=== PATIENT | male | born 1930 | race Caucasian/White ===

== ENCOUNTER 2016-10-13 11:01 | Outpatient (CLI) | payer MEDICARE, OTHER | END 2016-10-13 11:02 | disposition home or self-care (01) | DX: N05.9 Unspecified nephritic syndrome with unspecified morphologic changes (principal) ==

== ENCOUNTER 2016-11-06 14:42 | Outpatient (CLI) | payer MEDICARE, OTHER | END 2016-11-06 23:59 | disposition home or self-care (01) | DX: G47.33 Obstructive sleep apnea (adult) (pediatric) (principal) | CPT/HCPCS: 99213; G0463 ==

== ENCOUNTER 2016-12-29 08:12 | Outpatient (CLI) | payer MEDICARE, OTHER ==
[2016-12-29 13:52] LABS: BASOPHILS # (AUTO) 0.1 10^3/uL (0.0-0.1); BASOPHILS % (AUTO) 1.1 %; EOSINOPHILS # (AUTO) 0.4 10^3/uL (0.0-0.7); EOSINOPHILS % (AUTO) 5.7 %; HCT - HEMATOCRIT 42.9 % (42.0-52.0); HGB - HEMOGLOBIN 14.4 g/dL (14.0-18.0); LYMPHOCYTES # (AUTO) 1.9 10^3/uL (1.5-3.5); LYMPHOCYTES % (AUTO) 25.7 %; MEAN CORPUSCULAR HGB CONC 33.5 g/dL (32.0-36.0); MEAN CORPUSCULAR VOLUME 86.7 fL (80.0-94.0); MEAN PLATELET VOLUME 8.8 fL (7.4-11.4); MONOCYTES # (AUTO) 0.7 10^3/uL (0.0-1.0); MONOCYTES % (AUTO) 9.8 %; NEUTROPHILS # (AUTO) 4.3 10^3/uL (1.5-6.6); NEUTROPHILS % (AUTO) 57.7 %; RED BLOOD COUNT 4.95 10^6/uL (4.70-6.10); UNCORRECTED WHITE BLOOD COUNT 7.4 x10^3/uL; WHITE BLOOD COUNT 7.4 x10^3/uL (4.8-10.8)
[2016-12-29 14:23] LABS: ALBUMIN/GLOBULIN RATIO 1.9 (1.0-2.2); BILIRUBIN,TOTAL 0.6 mg/dL (0.2-1.0); BUN - BLOOD UREA NITROGEN 17 mg/dL (6-20); CALCIUM 9.6 mg/dL (8.5-10.3); CARBON DIOXIDE - CO2 29 mmol/L (21-32); CHLORIDE 100 mmol/L (101-111); CHOLESTEROL 121 mg/dL; CREATININE 1.3 mg/dL (0.6-1.2); GFR - MDRD 53 (>89); GLUCOSE 136 mg/dL (70-100); HDL CHOLESTEROL 40 mg/dL; LDL/HDL RATIO 0.8 (<3.6); POTASSIUM 4.2 mmol/L (3.5-5.0); SODIUM 138 mmol/L (135-145); TOTAL PROTEIN 7.2 g/dL (6.7-8.2); TRIGLYCERIDES 249 mg/dL; VLDL CHOLESTEROL 50 mg/dL
== END 2016-12-29 23:59 | disposition home or self-care (01) ==
LOC: LAB.WCP 08:12
PROVIDERS: ATTEND Family Medicine
DX: E78.5 Hyperlipidemia, unspecified (principal)
CPT/HCPCS: 36415; 80053; 80061; 84403; 85025

== ENCOUNTER 2017-01-05 08:00 | Outpatient (CLI) | payer MEDICARE, OTHER ==
[2017-01-05 20:21] LABS: HEMOGLOBIN A1C 0.7 g/dL
== END 2017-01-05 08:01 | disposition home or self-care (01) ==
LOC: LAB.WCP 08:00
PROVIDERS: ATTEND Family Medicine
DX: E11.9 Type 2 diabetes mellitus without complications (principal)
CPT/HCPCS: 36415; 82043; 83036

== ENCOUNTER 2017-09-12 23:30 | Outpatient (CLI) | payer MEDICARE, OTHER | END 2017-09-12 23:31 | LOC: LAB.R 23:30 | PROVIDERS: ATTEND Family Medicine | DX: R30.0 Dysuria (principal) | CPT/HCPCS: 87086 ==

== ENCOUNTER 2017-11-15 08:00 | Outpatient (CLI) | payer MEDICARE, OTHER ==
[2017-11-15 12:38] LABS: BASOPHILS # (AUTO) 0.1 10^3/uL (0.0-0.1); BASOPHILS % (AUTO) 1.3 %; EOSINOPHILS # (AUTO) 0.5 10^3/uL (0.0-0.7); EOSINOPHILS % (AUTO) 5.9 %; HGB - HEMOGLOBIN 15.4 g/dL (14.0-18.0); LYMPHOCYTES % (AUTO) 23.6 %; MEAN CORPUSCULAR HEMOGLOBIN 29.2 pg (27.0-31.0); MEAN CORPUSCULAR HGB CONC 33.3 g/dL (32.0-36.0); MEAN CORPUSCULAR VOLUME 87.5 fL (80.0-94.0); MEAN PLATELET VOLUME 7.8 fL (7.4-11.4); MONOCYTES # (AUTO) 0.8 10^3/uL (0.0-1.0); MONOCYTES % (AUTO) 8.7 %; NEUTROPHILS # (AUTO) 5.2 10^3/uL (1.5-6.6); NEUTROPHILS % (AUTO) 60.5 %; PLT - PLATELET COUNT 213 10^3/uL (130-450); RED BLOOD COUNT 5.27 10^6/uL (4.70-6.10); RED CELL DISTRIBUTION WIDTH 17.7 % (12.0-15.0); WHITE BLOOD COUNT 8.6 x10^3/uL (4.8-10.8)
[2017-11-15 12:57] LABS: ALBUMIN 4.5 g/dL (3.2-5.5); ALBUMIN/GLOBULIN RATIO 1.7 (1.0-2.2); ALKALINE PHOSPHATASE 36 IU/L (42-121); ALT ALANINE AMINOTRANSFERASE 18 IU/L (10-60); AST ASPARTATE AMINOTRANSFERASE 21 IU/L (10-42); BILIRUBIN,TOTAL 0.5 mg/dL (0.2-1.0); BUN - BLOOD UREA NITROGEN 19 mg/dL (6-20); CALCIUM 9.2 mg/dL (8.5-10.3); CARBON DIOXIDE - CO2 25 mmol/L (21-32); CHLORIDE 97 mmol/L (101-111); CHOL/HDL RATIO 3.1 (<5.0); CHOLESTEROL 125 mg/dL; CREATININE 1.2 mg/dL (0.6-1.2); GFR - MDRD 58 (>89); GLUCOSE 124 mg/dL (70-100); HDL CHOLESTEROL 40 mg/dL; LDL CHOLESTEROL,CALCULATED 45 mg/dL; LDL/HDL RATIO 1.1 (<3.6); SODIUM 131 mmol/L (135-145); TOTAL PROTEIN 7.2 g/dL (6.7-8.2); VLDL CHOLESTEROL 40 mg/dL
[2017-11-15 15:26] LABS: HB2 TOTAL 17.1 g/dL; HEMOGLOBIN A1C 0.92 g/dL; HEMOGLOBIN A1C % 7.1 % (4.6-6.2)
== END 2017-11-15 08:01 ==
LOC: LAB.WCP 08:00
PROVIDERS: ATTEND Family Medicine
DX: I10 Essential (primary) hypertension (principal); E11.9 Type 2 diabetes mellitus without complications; E78.5 Hyperlipidemia, unspecified; E29.8 Other testicular dysfunction; R41.3 Other amnesia; D64.9 Anemia, unspecified; F32.9 Major depressive disorder, single episode, unspecified
CPT/HCPCS: 36415; 80053; 80061; 82043; 83036; 83721; 84403; 84443; 85025

== ENCOUNTER 2017-12-12 11:54 | Outpatient (CLI) | payer MEDICARE, OTHER ==
[2017-12-12 19:01] LABS: HGB - HEMOGLOBIN 14.3 g/dL (14.0-18.0); MEAN CORPUSCULAR HEMOGLOBIN 29.1 pg (27.0-31.0); MEAN CORPUSCULAR HGB CONC 32.7 g/dL (32.0-36.0); MEAN CORPUSCULAR VOLUME 88.8 fL (80.0-94.0); MEAN PLATELET VOLUME 8.1 fL (7.4-11.4); RED BLOOD COUNT 4.92 10^6/uL (4.70-6.10); RED CELL DISTRIBUTION WIDTH 17.9 % (12.0-15.0); WHITE BLOOD COUNT 7.3 x10^3/uL (4.8-10.8)
[2017-12-12 19:14] LABS: CALCIUM 9.3 mg/dL (8.5-10.3); CREATININE 1.3 mg/dL (0.6-1.2); PHOSPHORUS 2.3 mg/dL (2.5-4.6)
[2017-12-12 19:21] LABS: CREATININE,URINE 74.4 mg/dL; PROTEIN/CREATININE RATIO,URINE 0.2 (<=0.2)
== END 2017-12-12 11:55 | disposition home or self-care (01) ==
LOC: LAB.WCP 11:54
PROVIDERS: ATTEND Internal Medicine Nephrology
DX: N05.9 Unspecified nephritic syndrome with unspecified morphologic changes (principal); D70.9 Neutropenia, unspecified; D63.1 Anemia in chronic kidney disease; E83.30 Disorder of phosphorus metabolism, unspecified; N25.81 Secondary hyperparathyroidism of renal origin; R80.9 Proteinuria, unspecified
CPT/HCPCS: 36415; 80048; 82570; 83970; 84100; 84156

== ENCOUNTER 2018-04-02 07:24 | Outpatient (CLI) | payer MEDICARE, OTHER ==
[2018-04-02 12:20] LABS: ALBUMIN 4.6 g/dL (3.2-5.5); ALBUMIN/GLOBULIN RATIO 1.6 (1.0-2.2); BILIRUBIN,TOTAL 0.9 mg/dL (0.2-1.0); CALCIUM 9.6 mg/dL (8.5-10.3); CREATININE 1.4 mg/dL (0.6-1.2); TOTAL PROTEIN 7.4 g/dL (6.7-8.2)
[2018-04-02 12:28] LABS: HB2 TOTAL 16.5 g/dL; HEMOGLOBIN A1C 0.85 g/dL; HEMOGLOBIN A1C % 6.9 % (4.6-6.2)
[2018-04-02 12:42] LABS: BASOPHILS # (AUTO) 0.1 10^3/uL (0.0-0.1); BASOPHILS % (AUTO) 1.1 %; EOSINOPHILS # (AUTO) 0.5 10^3/uL (0.0-0.7); HGB - HEMOGLOBIN 15.5 g/dL (14.0-18.0); LYMPHOCYTES # (AUTO) 1.9 10^3/uL (1.5-3.5); LYMPHOCYTES % (AUTO) 21.7 %; MEAN CORPUSCULAR HEMOGLOBIN 29.4 pg (27.0-31.0); MEAN CORPUSCULAR HGB CONC 33.7 g/dL (32.0-36.0); MEAN CORPUSCULAR VOLUME 87.1 fL (80.0-94.0); MEAN PLATELET VOLUME 7.7 fL (7.4-11.4); MONOCYTES # (AUTO) 0.8 10^3/uL (0.0-1.0); MONOCYTES % (AUTO) 9.7 %; NEUTROPHILS # (AUTO) 5.4 10^3/uL (1.5-6.6); NEUTROPHILS % (AUTO) 61.5 %; PLT - PLATELET COUNT 230 10^3/uL (130-450); RED BLOOD COUNT 5.28 10^6/uL (4.70-6.10); RED CELL DISTRIBUTION WIDTH 17.8 % (12.0-15.0); WHITE BLOOD COUNT 8.7 x10^3/uL (4.8-10.8)
== END 2018-04-02 07:25 | disposition home or self-care (01) ==
LOC: LAB.WCP 07:24
PROVIDERS: ATTEND Family Medicine
DX: I10 Essential (primary) hypertension (principal); E11.9 Type 2 diabetes mellitus without complications; D64.9 Anemia, unspecified
CPT/HCPCS: 36415; 80053; 83036; 85025

== ENCOUNTER 2018-09-12 15:20 | Outpatient (CLI) | payer MEDICARE, OTHER ==
[2018-09-12 18:54] LABS: BASOPHILS # (AUTO) 0.1 10^3/uL (0.0-0.1); BASOPHILS % (AUTO) 1.1 %; EOSINOPHILS # (AUTO) 0.3 10^3/uL (0.0-0.7); EOSINOPHILS % (AUTO) 4.7 %; HGB - HEMOGLOBIN 10.8 g/dL (14.0-18.0); LYMPHOCYTES % (AUTO) 29.4 %; MEAN CORPUSCULAR HEMOGLOBIN 29.5 pg (27.0-31.0); MEAN CORPUSCULAR HGB CONC 32.6 g/dL (32.0-36.0); MEAN CORPUSCULAR VOLUME 90.4 fL (80.0-94.0); MEAN PLATELET VOLUME 7.8 fL (7.4-11.4); MONOCYTES # (AUTO) 0.5 10^3/uL (0.0-1.0); NEUTROPHILS % (AUTO) 57.8 %; PLT - PLATELET COUNT 383 10^3/uL (130-450); RED BLOOD COUNT 3.67 10^6/uL (4.70-6.10); RED CELL DISTRIBUTION WIDTH 17.6 % (12.0-15.0); WHITE BLOOD COUNT 6.8 x10^3/uL (4.8-10.8)
[2018-09-12 19:07] LABS: HB2 TOTAL 11.1 g/dL; HEMOGLOBIN A1C 0.35 g/dL
[2018-09-12 19:09] LABS: ALBUMIN 3.7 g/dL (3.2-5.5); ALBUMIN/GLOBULIN RATIO 1.2 (1.0-2.2); BILIRUBIN,TOTAL 0.6 mg/dL (0.2-1.0); CALCIUM 9.5 mg/dL (8.5-10.3); CREATININE 1.2 mg/dL (0.6-1.2); TOTAL PROTEIN 6.9 g/dL (6.7-8.2)
[2018-09-12 19:33] LABS: FOLATE 20.38 ng/mL (5.90 - >24.8)
== END 2018-09-12 15:21 | disposition home or self-care (01) ==
LOC: LAB.WCP 15:20
PROVIDERS: ATTEND Family Medicine
DX: E11.9 Type 2 diabetes mellitus without complications (principal); E29.8 Other testicular dysfunction; R41.3 Other amnesia; I10 Essential (primary) hypertension; I25.810 Atherosclerosis of coronary artery bypass graft(s) without angina pectoris
CPT/HCPCS: 36415; 80053; 82043; 82607; 82746; 83036; 84403; 85025

== ENCOUNTER 2018-10-18 09:25 | Outpatient (CLI) | payer MEDICARE, OTHER | END 2018-10-18 23:59 | LOC: LAB.WCP 09:25 | PROVIDERS: ATTEND Family Medicine | DX: E29.8 Other testicular dysfunction (principal); R10.9 Unspecified abdominal pain; K29.70 Gastritis, unspecified, without bleeding; F41.8 Other specified anxiety disorders | CPT/HCPCS: 36415; 84403 ==

== ENCOUNTER 2018-12-18 01:19 | Outpatient (CLI) | payer MEDICARE, OTHER | END 2018-12-18 01:20 | disposition short-term general hospital (02) | LOC: EMS 01:19 | PROVIDERS: ATTEND Surgery | DX: K62.5 Hemorrhage of anus and rectum (principal) | CPT/HCPCS: A0425; A0427 ==

== ENCOUNTER 2019-01-14 08:00 | Outpatient (CLI) | payer MEDICARE, OTHER | END 2019-01-14 23:59 | disposition home or self-care (01) | LOC: LAB.WCP 08:00 | PROVIDERS: ATTEND Family Medicine | DX: E29.1 Testicular hypofunction (principal) | CPT/HCPCS: 36415; 84403 ==

== ENCOUNTER 2019-04-11 09:00 | Outpatient (CLI) | payer MEDICARE, OTHER ==
[2019-04-11 18:32] LABS: BASOPHILS # (AUTO) 0.1 10^3/uL (0.0-0.1); EOSINOPHILS # (AUTO) 0.3 10^3/uL (0.0-0.7); EOSINOPHILS % (AUTO) 3.1 %; HGB - HEMOGLOBIN 14.3 g/dL (14.0-18.0); LYMPHOCYTES # (AUTO) 2.2 10^3/uL (1.5-3.5); LYMPHOCYTES % (AUTO) 23.7 %; MEAN CORPUSCULAR HEMOGLOBIN 28.2 pg (27.0-31.0); MEAN CORPUSCULAR HGB CONC 32.4 g/dL (32.0-36.0); MEAN PLATELET VOLUME 10.5 fL (7.4-11.4); MONOCYTES # (AUTO) 0.9 10^3/uL (0.0-1.0); MONOCYTES % (AUTO) 10.2 %; NEUTROPHILS # (AUTO) 5.6 10^3/uL (1.5-6.6); NEUTROPHILS % (AUTO) 61.5 %; PLT - PLATELET COUNT 285 10^3/uL (130-450); RED BLOOD COUNT 5.07 10^6/uL (4.70-6.10); RED CELL DISTRIBUTION WIDTH 17.7 % (12.0-15.0); WHITE BLOOD COUNT 9.1 x10^3/uL (4.8-10.8)
[2019-04-11 18:49] LABS: HB2 TOTAL 14.7 g/dL; HEMOGLOBIN A1C 0.71 g/dL; HEMOGLOBIN A1C % 6.6 % (4.6-6.2)
[2019-04-11 18:54] LABS: ALBUMIN 4.7 g/dL (3.2-5.5); ALBUMIN/GLOBULIN RATIO 1.5 (1.0-2.2); ALKALINE PHOSPHATASE 36 IU/L (42-121); ALT ALANINE AMINOTRANSFERASE 17 IU/L (10-60); AST ASPARTATE AMINOTRANSFERASE 19 IU/L (10-42); BILIRUBIN,TOTAL 0.8 mg/dL (0.2-1.0); BUN - BLOOD UREA NITROGEN 22 mg/dL (6-20); CALCIUM 9.7 mg/dL (8.5-10.3); CARBON DIOXIDE - CO2 28 mmol/L (21-32); CHLORIDE 98 mmol/L (101-111); CHOL/HDL RATIO 2.6 (<5.0); CHOLESTEROL 110 mg/dL; CREATININE 1.5 mg/dL (0.6-1.2); GFR - MDRD 44 (>89); GLUCOSE 111 mg/dL (70-100); HDL CHOLESTEROL 43 mg/dL; LDL CHOLESTEROL,CALCULATED 39 mg/dL; LDL/HDL RATIO 0.9 (<3.6); SODIUM 135 mmol/L (135-145); TOTAL PROTEIN 7.8 g/dL (6.7-8.2); VLDL CHOLESTEROL 28 mg/dL
== END 2019-04-11 23:59 | disposition home or self-care (01) ==
LOC: LAB.WCP 09:00
PROVIDERS: ATTEND Physician Assistant
DX: I10 Essential (primary) hypertension (principal); E11.9 Type 2 diabetes mellitus without complications; E78.5 Hyperlipidemia, unspecified
CPT/HCPCS: 36415; 80053; 80061; 83036; 83721; 85025

== ENCOUNTER 2019-05-23 08:00 | Outpatient (CLI) | payer MEDICARE, OTHER ==
[2019-05-23 18:39] LABS: BASOPHILS # (AUTO) 0.1 10^3/uL (0.0-0.1); EOSINOPHILS # (AUTO) 0.4 10^3/uL (0.0-0.7); EOSINOPHILS % (AUTO) 4.1 %; HGB - HEMOGLOBIN 13.9 g/dL (14.0-18.0); LYMPHOCYTES # (AUTO) 2.5 10^3/uL (1.5-3.5); LYMPHOCYTES % (AUTO) 23.5 %; MEAN CORPUSCULAR HEMOGLOBIN 28.8 pg (27.0-31.0); MEAN CORPUSCULAR HGB CONC 32.5 g/dL (32.0-36.0); MEAN CORPUSCULAR VOLUME 88.8 fL (80.0-94.0); MEAN PLATELET VOLUME 10.4 fL (7.4-11.4); MONOCYTES # (AUTO) 0.9 10^3/uL (0.0-1.0); MONOCYTES % (AUTO) 8.9 %; NEUTROPHILS # (AUTO) 6.4 10^3/uL (1.5-6.6); NEUTROPHILS % (AUTO) 61.3 %; PLT - PLATELET COUNT 257 10^3/uL (130-450); RED BLOOD COUNT 4.82 10^6/uL (4.70-6.10); RED CELL DISTRIBUTION WIDTH 17.7 % (12.0-15.0); WHITE BLOOD COUNT 10.5 x10^3/uL (4.8-10.8)
[2019-05-23 19:00] LABS: CALCIUM 9.5 mg/dL (8.5-10.3); CREATININE 1.7 mg/dL (0.6-1.2)
== END 2019-05-23 23:59 | disposition home or self-care (01) ==
LOC: LAB.WCP 08:00
PROVIDERS: ATTEND Physician Assistant
DX: Z79.899 Other long term (current) drug therapy (principal); N18.9 Chronic kidney disease, unspecified
CPT/HCPCS: 36415; 80048; 85025

== ENCOUNTER 2019-05-29 13:45 | Outpatient (CLI) | payer MEDICARE, OTHER ==
--- NOTE | 2019-05-29 19:16 | XRAY Report ---
Reason: COUGH Procedure Date: 05/29/2019 Accession Number: [id number] / [id number] Procedure: WCP - Chest 2 View X-Ray CPT Code: 74165 FULL RESULT: EXAM: CHEST RADIOGRAPHY EXAM DATE: 05/29/2019 01:45 PM. CLINICAL HISTORY: COUGH. COMPARISON: None. TECHNIQUE: 2 views. FINDINGS: Lungs/Pleura: Mild increased interstitial markings bilateral CP angles. No other focal opacities evident. No pleural effusion. No pneumothorax. Normal volumes. Mediastinum: Top normal heart size. Elevated right diaphragm. 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 Bony demineralization and degenerative change in the spine. Compression fractures not excluded. Healed right rib fractures. IMPRESSION: No definite acute findings. Chronic changes are present. RADIA
== END 2019-05-29 23:59 | disposition home or self-care (01) ==
LOC: DI.WCP 13:45
PROVIDERS: ATTEND Physician Assistant
DX: R05 Cough (principal)
CPT/HCPCS: 71046

== ENCOUNTER 2019-06-05 07:00 | Outpatient (CLI) | payer MEDICARE, OTHER ==
[2019-06-05 19:35] LABS: CALCIUM 9.5 mg/dL (8.5-10.3); CREATININE 1.7 mg/dL (0.6-1.2)
[2019-06-05 19:49] LABS: CREATININE,URINE 48.4 mg/dL
[2019-06-05 19:50] LABS: TOTAL PROTEIN,URINE TIMED < 6 mg/dL
== END 2019-06-05 23:59 | disposition home or self-care (01) ==
LOC: LAB.WCP 07:00
PROVIDERS: ATTEND Internal Medicine Nephrology
DX: R80.9 Proteinuria, unspecified (principal); R60.0 Localized edema
CPT/HCPCS: 36415; 80048; 82570; 84156

== ENCOUNTER 2019-06-06 14:05 | Outpatient (CLI) | payer MEDICARE, OTHER ==
[2019-06-09 19:39] LABS: CALCIUM 9.3 mg/dL (8.5-10.3)
== END 2019-06-06 23:59 | disposition home or self-care (01) ==
LOC: LAB.WCP 14:05
PROVIDERS: ATTEND Physician Assistant
DX: R60.0 Localized edema (principal)
CPT/HCPCS: 36415; 80048

== ENCOUNTER 2019-06-12 17:30 | Outpatient (CLI) | payer MEDICARE, OTHER | END 2019-06-12 17:31 | disposition short-term general hospital (02) | LOC: EMS 17:30 | PROVIDERS: ATTEND Surgery | DX: R53.1 Weakness (principal); R09.89 Other specified symptoms and signs involving the circulatory and respiratory systems | CPT/HCPCS: A0425; A0427 ==

== ENCOUNTER 2019-06-16 08:00 | Outpatient (CLI) | payer MEDICARE, OTHER ==
[2019-06-16 18:30] LABS: CALCIUM 9.6 mg/dL (8.5-10.3); CREATININE 1.5 mg/dL (0.6-1.2)
== END 2019-06-16 23:59 | disposition home or self-care (01) ==
LOC: LAB.WCP 08:00
PROVIDERS: ATTEND Physician Assistant
DX: E11.22 Type 2 diabetes mellitus with diabetic chronic kidney disease (principal); N18.9 Chronic kidney disease, unspecified
CPT/HCPCS: 36415; 80048

== ENCOUNTER 2019-06-20 14:55 | Outpatient (CLI) | payer MEDICARE, OTHER ==
[2019-06-20 19:03] LABS: CALCIUM 9.6 mg/dL (8.5-10.3); CREATININE 1.5 mg/dL (0.6-1.2)
== END 2019-06-20 23:59 | disposition home or self-care (01) ==
LOC: LAB.WCP 14:55
PROVIDERS: ATTEND Physician Assistant
DX: N18.9 Chronic kidney disease, unspecified (principal)
CPT/HCPCS: 36415; 80048

== ENCOUNTER 2019-07-11 13:13 | Outpatient (CLI) | payer MEDICARE, OTHER ==
[2019-07-11 18:56] LABS: CALCIUM 9.6 mg/dL (8.5-10.3); CREATININE 1.5 mg/dL (0.6-1.2)
== END 2019-07-11 23:59 | disposition home or self-care (01) ==
LOC: LAB.WCP 13:13
PROVIDERS: ATTEND Internal Medicine Nephrology
DX: N05.9 Unspecified nephritic syndrome with unspecified morphologic changes (principal)
CPT/HCPCS: 36415; 80048

== ENCOUNTER 2019-09-18 14:32 | Outpatient (CLI) | payer MEDICARE, OTHER ==
[2019-09-18 19:01] LABS: CALCIUM 9.7 mg/dL (8.5-10.3); CREATININE 1.4 mg/dL (0.6-1.2)
[2019-09-18 19:33] LABS: HB2 TOTAL 16.2 g/dL; HEMOGLOBIN A1C 0.99 g/dL; HEMOGLOBIN A1C % 7.7 % (4.6-6.2)
== END 2019-09-18 23:59 | disposition home or self-care (01) ==
LOC: LAB.WCP 14:32
PROVIDERS: ATTEND Physician Assistant
DX: I10 Essential (primary) hypertension (principal); E11.9 Type 2 diabetes mellitus without complications; E29.8 Other testicular dysfunction
CPT/HCPCS: 36415; 80048; 81599; 83036; 84402; 84403

== ENCOUNTER 2019-10-08 18:25 | Outpatient (CLI) | payer MEDICARE, OTHER | END 2019-10-08 18:26 | disposition short-term general hospital (02) | LOC: EMS 18:25 | PROVIDERS: ATTEND Surgery | DX: K62.5 Hemorrhage of anus and rectum (principal) | CPT/HCPCS: A0425; A0429 ==

== ENCOUNTER 2019-10-17 08:00 | Outpatient (CLI) | payer MEDICARE, OTHER ==
[2019-10-17 18:24] LABS: BASOPHILS # (AUTO) 0.1 10^3/uL (0.0-0.1); EOSINOPHILS # (AUTO) 0.5 10^3/uL (0.0-0.7); EOSINOPHILS % (AUTO) 5.4 %; HGB - HEMOGLOBIN 8.7 g/dL (14.0-18.0); LYMPHOCYTES # (AUTO) 1.5 10^3/uL (1.5-3.5); LYMPHOCYTES % (AUTO) 15.9 %; MEAN CORPUSCULAR HEMOGLOBIN 29.5 pg (27.0-31.0); MEAN CORPUSCULAR HGB CONC 31.9 g/dL (32.0-36.0); MEAN CORPUSCULAR VOLUME 92.5 fL (80.0-94.0); MEAN PLATELET VOLUME 9.9 fL (7.4-11.4); MONOCYTES # (AUTO) 0.8 10^3/uL (0.0-1.0); NEUTROPHILS % (AUTO) 64.9 %; PLT - PLATELET COUNT 393 10^3/uL (130-450); RED BLOOD COUNT 2.95 10^6/uL (4.70-6.10); RED CELL DISTRIBUTION WIDTH 17.6 % (12.0-15.0); WHITE BLOOD COUNT 9.2 x10^3/uL (4.8-10.8)
[2019-10-17 18:58] LABS: ALBUMIN 3.8 g/dL (3.2-5.5); ALBUMIN/GLOBULIN RATIO 1.8 (1.0-2.2); BILIRUBIN,TOTAL 0.5 mg/dL (0.2-1.0); CALCIUM 8.7 mg/dL (8.5-10.3); CREATININE 1.4 mg/dL (0.6-1.2); TOTAL PROTEIN 5.9 g/dL (6.7-8.2)
== END 2019-10-17 23:59 | disposition home or self-care (01) ==
LOC: LAB.R 08:00
PROVIDERS: ATTEND Family Medicine
DX: K92.2 Gastrointestinal hemorrhage, unspecified (principal)
CPT/HCPCS: 36415; 80053; 85025

== ENCOUNTER 2020-01-26 16:00 | Outpatient (CLI) | payer MEDICARE, OTHER ==
[2020-01-26 18:08] LABS: BASOPHILS # (AUTO) 0.1 10^3/uL (0.0-0.1); BASOPHILS % (AUTO) 1.3 %; EOSINOPHILS # (AUTO) 0.5 10^3/uL (0.0-0.7); EOSINOPHILS % (AUTO) 6.1 %; HGB - HEMOGLOBIN 14.8 g/dL (14.0-18.0); LYMPHOCYTES # (AUTO) 1.5 10^3/uL (1.5-3.5); LYMPHOCYTES % (AUTO) 19.4 %; MEAN CORPUSCULAR HEMOGLOBIN 29.3 pg (27.0-31.0); MEAN CORPUSCULAR HGB CONC 33.6 g/dL (32.0-36.0); MEAN CORPUSCULAR VOLUME 87.3 fL (80.0-94.0); MONOCYTES # (AUTO) 0.6 10^3/uL (0.0-1.0); MONOCYTES % (AUTO) 7.9 %; NEUTROPHILS % (AUTO) 64.6 %; PLT - PLATELET COUNT 258 10^3/uL (130-450); RED BLOOD COUNT 5.05 10^6/uL (4.70-6.10); RED CELL DISTRIBUTION WIDTH 16.8 % (12.0-15.0); WHITE BLOOD COUNT 7.7 x10^3/uL (4.8-10.8)
[2020-01-26 18:36] LABS: ALBUMIN 4.5 g/dL (3.2-5.5); ALBUMIN/GLOBULIN RATIO 1.5 (1.0-2.2); BILIRUBIN,TOTAL 0.6 mg/dL (0.2-1.0); CALCIUM 9.4 mg/dL (8.5-10.3); CREATININE 1.6 mg/dL (0.6-1.2); TOTAL PROTEIN 7.5 g/dL (6.7-8.2)
== END 2020-01-26 23:59 | disposition home or self-care (01) ==
LOC: LAB.WCP 16:00
PROVIDERS: ATTEND Physician Assistant
DX: K92.2 Gastrointestinal hemorrhage, unspecified (principal)
CPT/HCPCS: 36415; 80053; 85025

== ENCOUNTER 2020-06-24 13:52 | Outpatient (CLI) | payer MEDICARE, OTHER ==
--- NOTE | 2020-06-24 14:46 | SLEEP CARE CONSULTATION ---
Information from patient questionnaire entered by Marie Vale. I have reviewed and concur with the information entered by Marie Vale. This document represents the service I personally performed and the decisions made by me, Trisha Moy ARNP. History of Present Illness Service Date and Time: 06/24/2020 1352 Reason for Visit: New patient, Re-establish [facility] (last seen 11/2016) Chief Complaint: reports: Unrefreshed sleep, Snoring, Fatigue, Other (previously diagnosed with AL with AHI of 7.2). denies: Insomnia, Observed pauses in breathing (no sure) Date of Onset: 2014 Usual bedtime: 8-9:30 Time it takes to fall asleep: ? Snores at night: No Sleeps alone due to snoring: Yes Number of times waking at night: 2-3 Reasons for waking at night: reports: Pain, Bathroom. 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 He was referred by his smokehouse operator to get him back on CPAP therapy for his cardiac health. - Parasomnia Symptoms Ever been unable to move upon waking from sleep: No Walks in sleep: No Talks in sleep: No Ever acted out dreams in sleep: No Ever felt weak in the knees when startled or emotional: No Bothered by creepy, crawly, restless sensations in legs: Yes Problems with memory or concentration: Yes Subjective Initial [place] Sleepiness Scale score: 5 (in 2019) Past Medical History Past Medical History: reports: Hypertension, Diabetes (pre-diabetes), Coronary Heart Disease, Impotence, GERD. denies: Congestive Heart Failure, Arrythmia, A nxiety, Depression Social History The patient's occupation is a RE. Patient is / and lives in [place]. Have you smoked in the past 12 months: No Alcohol use: No Caffeine use: Yes Family History Family history of sleep disordered breathing: Yes (son) Family Hx Sleep Apnea: Other: Sleep apnea - Treated (son on BIPAP) Allergies and Home Medications Drug allergies reviewed: Yes (codiene) Home medication list reviewed: Yes (see scanned list) Review of Systems Cardiovascular: reports: high blood pressure. denies: chest pain, irregular heart rate or pulse Gastrointestinal: reports: heartburn. denies: difficulty swallowing Urinary: reports: impotence Neurological: denies: headaches, seizure, head trauma Psychiatric: reports: depression Ear/Nose/Throat: reports: tonsillectomy, wisdom teeth removed. denies: nasal congestion, sinus problems, nose bleeds, dry mouth/throat Endocrine: reports: sluggishness Musculoskeletal: reports: joint pain, muscle pain or cramping Immunologic: reports: allergies to food or environment Physical Exam Blood Pressure: 138/68 Cuff size: long Heart Rate: 76 O2 Saturation: 97 Height: 5 ft 10 in Weight: 228 lb Body Mass Index: 32.7 BMI Classification: Obese Nostrils: patent to airflow Turbinates: normal Septum: midline Mouth and throat: narrow oropharynx Uvula visualization: 50% Mallampati Class II Tongue: enlarged in size with teeth harper on lateral edges Tonsils: absent bilaterally Chin and jaw: normal size and position Neck: normal w/o lymphadenopathy or thyromegaly Heart: regular rate and rhythm Lungs: clear bilaterally Impression and Plan 1. Suspected Obstructive Sleep Apnea-Hypopnea Syndrome, as previously diagnosed and as suggested by a history of loud and irregular snoring, unrefreshed sleep, cognitive impairment, and excessive daytime sleepiness. He needs to have a repeat sleep study to verify diagnosis and severity to resume CPAP therapy. I recommend proceeding to polysomnography to confirm the diagnosis and to assess severity. If the patient has significant sleep disordered breathing, a manual CPAP titration study will also be performed to find the optimal treatment pressure. I informed the patient of what the sleep studies involve and after some discussion, obtained agreement to proceed. The pathophysiology of obstructive sleep apnea-hypopnea syndrome was discussed with the patient and health risks of cardiovascular and cerebrovascular disease if not treated. AASM brochure for obstructive sleep apnea-hypopnea syndrome given and reviewed. * Schedule polysomnography +- manual CPAP titration study. * Avoid long distance driving or driving when feeling sleepy. * Avoid alcohol, sedative and muscle relaxant around bedtime. * Attempt to lose weight. * Review instructions provided by trained office staff on how to prepare for the sleep study. * Return for follow-up after sleep study completed. Addendum: As we were completing his visit, patient started to hold his head in his hand and his daughter asked him if he was okay. He stated that he was feeling dizzy. After questioning, he was complaining of shortness of breath and pain in his right hand. He denied chest pain. Patient did appear a little paler than at onset of visit. His oxygen sats were 96-98% with heart rate in the 70s. He was given a sip of water but his symptoms did not improve. EMS was called and responded to our office. He complained of chest heaviness at that time. He was put on a gurney and transported about 1449 from our office. Visit Type: In Office Other Participants: Child (Daughter (power of criminal defense attorney)) Time Spent with Patient (minutes): 49 Provider Statement: I spent 100% of the Face to Face Visit with the patient with greater than 50% spent counseling the patient and coordination of care.
[2020-06-24 14:47] VITALS: BP 138/68
== END 2020-06-24 13:53 | disposition home or self-care (01) ==
LOC: SC 13:52
PROVIDERS: ATTEND Nurse Practitioner Family
DX: G47.33 Obstructive sleep apnea (adult) (pediatric) (principal)
CPT/HCPCS: 99204; G0463; 99212

== ENCOUNTER 2020-06-24 15:08 | Outpatient (CLI) | payer MEDICARE, OTHER | END 2020-06-24 15:09 | disposition short-term general hospital (02) | LOC: EMS 15:08 | PROVIDERS: ATTEND Surgery | DX: R42 Dizziness and giddiness (principal); R10.11 Right upper quadrant pain | CPT/HCPCS: A0425; A0427; A0888 ==

== ENCOUNTER 2020-07-27 13:25 | Outpatient (CLI) | payer MEDICARE, OTHER | END 2020-07-27 13:26 | disposition home or self-care (01) | LOC: SC 13:25 | PROVIDERS: ATTEND Nurse Practitioner Family | DX: G47.33 Obstructive sleep apnea (adult) (pediatric) (principal); R09.02 Hypoxemia; E66.9 Obesity, unspecified; Z68.32 Body mass index [BMI] 32.0-32.9, adult | CPT/HCPCS: G0399 ×2; 95806 ==

== ENCOUNTER 2020-08-04 16:47 | Outpatient (CLI) | payer MEDICARE, OTHER ==
--- NOTE | 2020-08-04 13:59 | SLEEP CARE CONSULTATION ---
Information from patient questionnaire entered by Myla Porras. I have reviewed and concur with the information entered by Myla Porras. This document represents the service I personally performed and the decisions made by me, Brea Vasquez RN, MSN, TELEPHONE LINEWORKER. History of Present Illness Service Date and Time: 08/04/2020 1330 Initial [place] Sleepiness Scale score: 5 (in 2019) Additional HPI information: Reviewed last visit note prior to this telemed visit. Patient was previously diagnosed with mild apnea in 2016 but currently not on CPAP therapy. He was seen in re-evaluation for his sleep apnea as advised by his insurance plan specialist and to resume his CPAP for his cardiac disease on 06/24/20. At the end of this office visit, he reported not feeling well and dizzy. He was also noted to be paler. Vitals taken and EMS called for further evaluation. By that time he also reported chest heaviness. Patient was transported by EMS out of office to ER. I also reviewed the visit note prior to this on 11/08/16 where he was seen by me for follow up of his CPAP use. He was accompanied by his daughter Zahra. He was using CPAP set [id number] with good control of apnea. He was having mask leaks and mild mask skin irritation. Measures discussed such as a cloth barrier and mask refitting by Wojciech. He was to follow up in a year unless he had CPAP concerns. SERA GONZALEZ returns with his daughter Zahra for follow up and results of the recently performed home sleep study. I reviewed the above information except the ER visit with patient and daughter Zahra whom he lives with . I explained the pathophysiology behind obstructive sleep apnea. We then spent time discussing rationale for restarting his nasal CPAP therapy. Because apnea is primarily in supine position, he is advised to avoid supine therapy until he can restart CPAP. After some discussion, the patient opted to go with the nasal CPAP therapy. Nasal autoCPAP set at [id number] will be ordered with rationale explained. A manual titration study will be ordered if unable to find optimal pressure with office adjustments. Patient has a CPAP and it is unclear if it needs to be replaced. I will have it checked out and replaced if indicated. New supplies will be obtained and a new mask fitted. I explained how CPAP machine works. Using CPAP every night in order to get used to it was emphasized. Patient advised to put CPAP mask on before getting into bed so as not to fall asleep without CPAP. He was advised to use it with all sleep, including naps. The patient was instructed to call the CPAP supplier to discuss any mechanical problem that may occur. If the mask given is unco mfortable or is difficult to keep on through the night even with adjustment, contact the CPAP supplier as many will replace with another mask style if notified before 30 days. If snoring or perceives is not getting enough air or too much air from the machine, notify this office. Patient does not drive so drowsy driving precautions not reviewed. Sleep Study - Results Type of Sleep Study: Home sleep study Prior sleep studies: Yes (Poly) Year and Where: 2014 and 2016 - [facility] Polysomnography/Home Sleep Study results: Physician Impression: The quality of the study is good. The length of the study is adequate (> 240 minutes). Please also see the tabulated and graphic data. 1. Obstructive Sleep Apnea-Hypopnea (ICD-10 G47.33), severe, with an AHI of 30.9 /hr and raul SaO2 of 74%. During the study, the patient had 42 apneas (40 obstructive, 0 central, 2 mixed) and 123 hypopneas. The longest episode lasted 70.0 seconds. The respiratory events occurred more frequently during supine sleep (supine AHI was 65.8 and non-supine, 30.08). 2. Hypoxemia (ICD-10 R09.02), moderate, with the lowest oxygen saturation of 74 % and 59.3 minutes with SaO2 under 90%. Baseline oxygen saturation was normal (Average oxygen saturation was 91%). Physical Exam Height: 5 ft 10 in Impression and Plan 1. Obstructive Sleep Apnea-Hypopnea Syndrome, severe, with lowest oxygen saturation of 74%. Obviously this is the cause of the patients symptoms of unrefreshed sleep, and excessive daytime sleepiness. Positive pressure therapy could benefit his cardiac disease. As mentioned above, the patient will be re started on nasal autoCPAP therapy with pressure set at 4-15 cmH2O. It will be determined if he can restart with his current CPAP or if a new CPAP will be started at set up by DME. A manual titration study will be completed if unable to find optimal treatment pressure with office adjustments. Compliance guidelines also reviewed. A copy of compliance guidelines will be given for reference by office staff. Because the apnea is more severe supine, I instructed to avoid sleeping supine using pillow positioning until able to start CPAP use. * Nasal auto CPAP therapy, pressure at 4-15 cm H2O. * Avoid supine sleep until using CPAP. * The patient is again cautioned about driving until sleepiness completely resolves. * Return one month after CPAP obtained. I will assess response to therapy and compliance at that time. Addendum- I researched patient records and saw that he obtained his original CPAP in the fall therefore, he is eligible for a new CPAP. At 1520 I called patients daughter and informed of the above. I also clarified approximately when patient stopped CPAP and she stated at least 2 years. Thus this information was placed on prescription for appropriate new set of CPAP. I reinforced for her to call DME if any equipment or mask problem and to contact this office if any concerns with using CPAP before his next follow up. I also reinforced non supine sleep. She states they have already discussed placing a commode in room for night time use so difficulty with using CPAP after using the bathroom. Visit Type: Telehealth Phone ([employer]) Patient Location: Home Other Participants: Child Location of Provider: Home Patient agrees and consents to this telehealth visit type: Yes Patient agrees to have their insurance billed: Yes Time Spent with Patient (minutes): 13 - some initial difficulty with audio connection Provider Statement: I spent 100% of the Telehealth Phone Call with the patient with greater than 50% spent counseling the patient and coordination of care.
== END 2020-08-04 16:48 | disposition home or self-care (01) ==
LOC: SC 16:47
PROVIDERS: ATTEND Nurse Practitioner Family
DX: G47.33 Obstructive sleep apnea (adult) (pediatric) (principal)

== ENCOUNTER 2020-08-26 10:15 | Outpatient (CLI) | payer MEDICARE, OTHER ==
--- NOTE | 2020-08-26 20:39 | CONSULTATION NOTE ---
Palliative Care Consultation - Referral Referring Provider: Denzel ROWE Time of Visit: [id number] Referral setting: Home Referral Reason: CHF/Memory Loss/Advanced Care Planning - Information Sources Records reviewed: Previous records reviewed History/Review of Systems obtained from: Patient, Family (daughter/LIZZIE Sweeney) Exam limitations: Clinical condition - History of Present Illness Brief History of Present Illness: This is an 89-year-old gentleman with a complex cardiac history who was seen and evaluated today for initial palliative care consultation with in the home that he resides with his daughter/LIZZIE Sweeney. The patient is having increased cognitive impairment that has been occurring over the last year. The daughter reports that he has been displaying increased sundowning behaviors over the last several months. He does not carry a diagnosis of dementia but does carry a diagnosis of memory loss. There is no family history of dementia and he is not on any disease modifying agents. The daughter reports that he is not able to use the phone within the house. He will not remember if she starts snacks at his coffee table. If she does need to leave the home for a short amount of time she always leaves the note that is placed right in front of him as a reminder where she went and how long she will be in contact information. In the last year he has declined further and approximately 6 weeks ago was evaluated by hospice or the [facility] but was not on admission has he did not quite meet hospice criteria. The patient has a history of obstructive sleep apnea and previously was on CPAP therapy but has been without a CPAP for approximately 2 years. He underwent reevaluation for his sleep apnea as recommended by his investigator vice where he was noted to have severe obstructive sleep apnea with hypokalemia where he had and made our oxygen saturation of 74% and episodes of hypoxemia where he had approximately 1 hour less than 90%. Approximately 2 weeks ago he restarted CPAP therapy but has not tolerated this. He is found in the morning by his daughter that he has taken off his CPAP machine. Likely due to his underlying cognitive impairment he is not recognizing the need to leave the CPAP in place. The daughter is requesting to be evaluated for nocturnal oxygen in place of the CPAP given the patient's history of hypoxemia noted on the sleep study and for comfort measures. In the last 2 weeks there have been acute changes in the patient's cognition with initiation of the CPAP in conjunction with a power outage and one of his sons visiting. This may have led to some underlying anxiety and the patient typically returns back to his baseline confusion. The patient's daughter reports that the patient himself has believed that he has been living in a hotel for months. The patient has a history of restless leg syndrome and is also followed by [facility] for the last 5 years. The daughter reports that when he was on higher doses of Effexor that he was "wiped out" during the day. They have tried tapering back his lorazepam however, this resulted in increased restless leg syndrome and he remains on his present dose of lorazepam as well as clonazepam as prescribed by [facility]. The patient has a history of chronic pain. 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 He is presently being [facility] and his pain is controlled on oxycodone 10 mg 3 times daily. The daughter is looking to consolidate the patient's multiple specialists given the difficulty with his ability to leave the home due to his multiple comorbidities and dyspnea on exertion exertion. The patient himself is sitting up in his recliner chair watching TV. He is well groomed and in no acute distress. He is hard of hearing and has refused to be evaluated for hearing aids. Medical/Surgical History - Past Medical History Cardiovascular: reports: Congestive heart failure (with reduced EF, EF 40% 05/07/2020), Hypertension, High cholesterol, Coronary artery disease, Other (carotid artery stenosis; incomplete LBBB) Respiratory: reports: Sleep apnea, CPAP use (consistently takes it off at night) Neuro: Other (Memory Loss, RLS) Endocrine/Autoimmune: reports: Type 2 diabetes GI: reports: GI bleed (October 2019 with ASA stopped) WELL TREATMENT OFFSIDER: reports: None : reports: Other (CKD stage III) HEENT: reports: Chronic hearing loss Psych: reports: Depression (followed by [facility]), Anxiety Derm: reports: Other (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 He met his when he was 19. His in 2012. At that he had 7 children together and their eldest Zahra is the patient's DPOA and caregiver with contact #[phone]. The patient has been living with Zahra for approximately 5 years. He was born in [place] and was residing in [facility] moving in with Zahra. He [place] in [place]. 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 Family History - Family History Family History: Mother: , Father: Family History Comment/Other: Both parents in their 80s due to heart disease Medications/Allergies - Medications Home Medications: Ambulatory Orders Medication Instructions Recorded Confirmed Acetaminophen [Acetaminophen Extra 1,000 mg PO TID 08/27/20 08/27/20 Strength] Allergy Relief 180 mg PO DAILY 08/27/20 Ascorbic Acid [Vitamin C] 500 mg PO DAILY 08/27/20 08/27/20 Cholecalciferol [Vitamin D3] 1 cap PO DAILY 08/27/20 08/27/20 Ferrous Sulfate 1 tab PO DAILY 08/27/20 08/27/20 Finasteride [Proscar] 5 mg PO DAILY 08/27/20 08/27/20 Fluticasone [Flonase] 2 spray IH BID 08/27/20 08/27/20 Gabapentin [Neurontin] 300 mg PO TID 08/27/20 08/27/20 Irbesartan [Avapro] 150 mg PO DAILY 08/27/20 08/27/20 LORazepam [Ativan] 0.5 mg PO TID 08/27/20 08/27/20 Lactobacillus Acidophilus 1 cap PO DAILY 08/27/20 08/27/20 [Acidophilus] Lovastatin 40 mg PO QPM 08/27/20 08/27/20 Melatonin 3 mg PO QPM 08/27/20 08/27/20 Metoprolol Succinate [Toprol Xl] 25 mg PO DAILY 08/27/20 08/27/20 Metoprolol Succinate [Toprol Xl] 50 mg PO QPM 08/27/20 08/27/20 Mirtazapine [Remeron] 30 mg PO QPM 08/27/20 08/27/20 Modafinil [Provigil] 200 mg PO DAILY 08/27/20 08/27/20 Multivit-Min/FA/Lycopen/Lutein 1 tab PO DAILY 08/27/20 08/27/20 [Centrum Silver Men Tablet] [place] 3 1,200 units PO BID 08/27/20 Omeprazole 40 mg PO BID 08/27/20 08/27/20 Oxycodone HCl 10 mg PO TID 08/27/20 08/27/20 Tamsulosin [Flomax] 0.8 mg PO DAILY 08/27/20 08/27/20 Torsemide 40 mg PO DAILY 08/27/20 08/27/20 Venlafaxine ER [Effexor ER] 1 cap PO .AT NOON 08/27/20 08/27/20 Venlafaxine ER [Effexor ER] 2 cap PO DAILY 08/27/20 08/27/20 clonazePAM [Clonazepam] 1 tab PO .EVERY EVENING 08/27/20 08/27/20 polyethylene glycoL 3350 [Miralax] 17 g PO DAILY 08/27/20 08/27/20 rOPINIRole [Requip] 0.25 mg PO QPM 08/27/20 08/27/20 - Allergies Allergies/Adverse Reactions: Allergies Allergy/AdvReac Type Severity Reaction Status Date / Time codeine Allergy Unknown Verified 08/27/20 15:42 pregabalin [From Lyrica] Allergy Unknown Verified 08/27/20 15:42 Review of Systems - Constitutional Constitutional: reports: Fatigue. denies: Fever, Weight loss - Eyes Eyes: reports: Corrective lenses - Ears, Nose & Throat Ears, Nose & Throat: reports: Hearing loss, Dentures. denies: Hearing aids - Cardiovascular Cardiovascular: reports: Exertional dyspnea, Decr. exercise tolerance. denies: Chest pain, Orthopnea - Respiratory Respiratory: denies: Wheezing - Gastrointestinal Gastrointestinal: reports: Constipation (controlled), Other (decreased appetite) - Genitourinary Genitourinary: denies: Dysuria - Musculoskeletal Musculoskeletal: reports: Joint pain (left lower leg pain), Assistive devices - Integumentary Integumentary: reports: Dryness, Other (daughter noted localized redness to left palm that has resolved with lotion application) - Neurological Neurological: reports: General weakness, Memory problems - Psychiatric Psychiatric: reports: Depression, Anxiety - Endocrine Endocrine: reports: Diabetes type 2 - Hematologic/Lymphatic Hematologic/Lymph: Anemia (GI bleed October 2019 with ASA stopped) - All Other Systems All Other Systems: reports: Reviewed and negative (Patient is a poor historian due to underlying cognitive impairment and review of systems supplemented by patient's daughter, Zahra.) Physical Exam - Vital Signs Temperature: 36.6 C Pulse Rate: 77 O2 Saturation: 96 (on RA) Blood Pressure: 110/64 (left arm cuff) - Physical Exam General Appearance: positive: No acute distress, Alert, Other (appears stated age, sitting up in recliner chair) Eyes Bilateral: positive: Normal inspection, Other (+corrective lenses) ENT: positive: No signs of dehydration, Other (B/l ear canals without excess cerumen and TMs intact bilaterally; +upper dentures) Neck: positive: No JVD, Trachea midline Cardiovascular: positive: Regular rate & rhythm, No murmur Respiratory: positive: No respiratory distress, Breath sounds nml Abdomen: positive: Non-tender, Soft, Nml bowel sounds, Obese. negative: Guarding Skin: positive: Dryness (to BLE) Extremities: positive: No pedal edema Neurologic/Psychiatric: positive: Disoriented to time (believed the year was 1976), Flat affect, Other (will differ to his daughter for more detailed information with questions) Palliative Care - POLST Patient has POLST: Yes POLST Status: DNR, Selective Treatment Pain: Pain unchanged ([facility] and wishes to transfer to palliative care for management due to difficulty in leaving the home) Tiredness/Fatigue: Severe (7-10) Drowsiness/Sedation: Moderate (4-6) Nausea: None Anorexia: Mild (1-3) Dyspnea: Moderate (4-6) Depression: Moderate (4-6) (followed by behavioral health) Anxiety: Moderate (4-6) (followed by behavioral health) Feelings of wellbeing/Perceived Quality of Life: Poor Sleep: Variable sleep pattern Constipation: Managed Performance Status: Patient is able to ambulate short distances with in his home with his walker. Walking long distances he become short of breath. He is no longer able to do his physical therapy exercises in the kitchen as he is too tired or reports dizziness. He pretty much stays in his recliner chair. Slight decrease in his appetite. Remains mainly continent of bladder and continent of bowels. PPS 50% - Palliative Care Discussion: Patient has a history of congestive heart failure with further reduction of his ejection fraction to 40% in 2020. He is having reports of dizziness and decreased exercise tolerance which has further limited his functional ability. He is also demonstrating further cognitive decline that may be due to vascular changes due to his cardiac history. The patient's daughter/DPOA recognizes that the patient has had a functional as well as cognitive decline over the last several months. He did not qualify for hospice services approximately 6 weeks ago and it is the daughter's desire to consolidate his appointments as he has multiple specialists and it is getting extremely difficult for him to get out of the home. She is hoping that palliative care will be able to provide additional assistance with teasing out goals of care, taking over pain management, and assist with transition to hospice when it is medically appropriate. The patient himself is not ready to . The patient's daughter believes that he is afraid of leaving her alone. The patient's daughter has been the wire machine operator of the family from a young age. The patient's sister also resided with them until her a few years ago. The daughter feels strongly that her mother and aunt are looking out for both her and the patient. Impression and Recommendations - Palliative Care Impression: This is an 89-year-old gentleman with congestive heart failure with ejection fraction 40%, cognitive impairment likely indicative of dementia, possibly vascular in nature, decrease functional status that is requiring advanced care planning and further assistance within his home. The patient's daughter wishes to consolidate multiple specialists and begin shifting to manzo quality of life and comfort within the home environment. He is not tolerating his CPAP therapy as he cannot recall to leave it on. Given that his overnight pulse oximetry to a low of 74% and approximately 60 minutes below 90% it is my believe that he would qualify for nocturnal oxygen for comfort and in place of CPAP therapy for his AL. Palliative care will continue to build rapport, explore goals of care, set expectations regarding pain management, care coordination and anticipatory guidance with transition to hospice when medically appropriate. Recommendations/Counseling Done: 1. Lumbar radiculopathy with chronic pain. Patient is presently being followed by the pain clinic at [facility]. Daughter is wishing to transition to palliative care for pain management and given the patient's decline and chronic comorbidities and difficulty for the patient to leave his home environment would be appropriate for palliative care to a soon at a point moving forward. Continue with gabapentin 300 mg 3 times daily. Continue oxycodone 10 mg 3 times daily as ordered for pain. We will follow-up at next evaluation regarding setting expectations for pain management. 2.Hypoxemia. Noted on patient's overnight sleep study where his lowest oxygen saturation was 74% and he had 59.3 minutes with an oxygen saturation under 90%. Due to his underlying cognitive impairment he is not able to keep on his CPAP machine overnight as he does not recall the need for this placement. Would benefit from discontinuation of CPAP therapy and moving to supplemental oxygen 2 L via nasal cannula overnight for her comfort and prevention of hypoxemia. Discussed with sleep study center [facility] and in agreement with POC. Will fax order and request to [facility] for supplemental oxygen overnight as the patient has [employer] insurance. 3.Xerosis. Most specifically noted to bilateral lower extremities. Recommended use of remedy skin repair cream to use to affected areas. 4.Caregiver burden. The patient's daughter is the sole caregiver and DPOA. Supportive listening provided. At the present time she is presently coping and managing and recognizes the patient's general decline. She does not feel that she needs any additional caregivers within the home at this point. We will continue to assess additional caregiving need and the patient daughters level of fatigue and readdress as needed. 5.Cognitive impairment. 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 Would perform a more formal assessment at next visit to further evaluate. 6. Congestive heart failure with ejection fraction 40%. Appears to be euvolemic at this time. Continue cardiac medications as ordered by cardiology. Follow-up with cardiology as scheduled 09/10/[address] Akers. 7. Advanced care planning. Patient has POLST in place as DN AR with limited interventions. Is becoming extremely difficult for the patient's daughter to get the patient out of the home thus requiring a palliative care for additional support in the home setting. The patient did not recently qualify for [facility] as he did not meet hospice criteria. Ultimately, the patient's daughter wishes for him to be comfortable within his home setting and would not place him in a facility environment. The goal is to keep the patient comfortable and transition to hospice when it is deemed appropriate. Time Spent: Total time spent 115 minutes with greater than 50% of this spent in counseling and coordination of care with patient and daughter/DPOA; review of palliative philosophy; examination of patient; supportive listening; introduction of taking over pain management and expectations; review symptom management and anticipatory guidance. Disclaimer: The chart note was formulated using voice recognition technology and unfortunately sound alike errors may occur.
== END 2020-08-26 10:16 | disposition home or self-care (01) ==
LOC: PC 10:15
PROVIDERS: ATTEND Nurse Practitioner Family
DX: Z51.5 Encounter for palliative care (principal); M54.16 Radiculopathy, lumbar region; G89.29 Other chronic pain; R09.02 Hypoxemia; L85.3 Xerosis cutis; G31.84 Mild cognitive impairment of uncertain or unknown etiology; E11.22 Type 2 diabetes mellitus with diabetic chronic kidney disease; I13.0 Hypertensive heart and chronic kidney disease with heart failure and stage 1 through stage 4 chronic kidney disease, or unspecified chronic kidney disease; N18.30 Chronic kidney disease, stage 3 unspecified; I50.9 Heart failure, unspecified; Z66 Do not resuscitate
CPT/HCPCS: 99345

== ENCOUNTER 2020-09-23 10:10 | Outpatient (CLI) | payer MEDICARE, OTHER ==
--- NOTE | 2020-09-23 14:58 | CONSULTATION NOTE ---
Palliative Care Follow Up - Referral Referring Provider: SOLEDAD Mg Time of Visit: 3676-0995 Referral setting: Home Referral Reason: Chronic pain syndrome/Memory Loss/AL - Information Sources Records reviewed: Previous records reviewed History/Review of Systems obtained from: Patient, Family (daughter/Zahra SAMUEL) Exam limitations: Clinical condition (Cognitive impairment, [place]IL[place]) - History of Present Illness Update Brief HPI Update: This is an 89-year-old gentleman with a complex cardiac history who was seen in follow-up today within his home for chronic osteoarthritic pain management, memory loss And AL with his daughter/Zahra SAMUEL present. The patient has a history of septic sleep apnea and previously was on CPAP therapy but has been without a CPAP for approximately 2 years. He underwent reevaluation for his sleep apnea that was recommended by his casino worker and was noted to have severe obstructive sleep apnea with hypoxia with the lowest oxygen saturation of 74% and episodes of hypoxemia But he was unable to keep his CPAP in place due to his underlying cognitive impairment. He has transitioned over to supplemental oxygen which she will wear intermittently during the day as well as overnight. At times, the patient's daughter will find that he will have the oxygen out of his nose around top of his head. The patient's daughter does note that when he takes off his oxygen overnight that his blood pressure will be elevated the next day. Blood pressures typically ranging 119-164/63-80. He has not had any recent falls. The mattress is now lower to the floor in the patient's bedroom. He does have periodic times where he will go out and wander use the restroom in the middle of the night. The patient's daughter does have a bed alarm which she is looking at potentially utilizing to alert her if he has gotten up. She has not followed through and obtainment of a baby monitor for utilization overnight. The patient is presently being followed by the [facility] pain clinic in [place] for his chronic pain related to osteoarthritis. He did have a logging accident in his early adulthood where a tree fell on him. His pain is presently being controlled on oxycodone 10 mg 3 times daily.Is becoming increasingly difficult for the patient to leave his home environment to attend multiple specialists and the daughter is wishing to transfer pain management to palliative care. The patient's daughter reports that his appetite is pretty good but he continues to be a picky eater. He recently saw his casino worker, Dr. Akers and his torsemide was increased to 40 mg twice daily. His goal weight is approximately 220 pounds. The daughter weighs the patient approximately every other day on average. A hat he has a larger amount of sodium containing foods he will have swelling localized to his feet that typically resolves the next day. The patient is not interested in doing more walking or exercises within the home. He prefers to remain in his recliner chair, watching television. In the evenings he and his daughter will hold conversations. They do have a plan to have an outing later today so he may have his haircut. Over the last several weeks the daughter is also noting some increased fecal incontinence and it may take several trips to the bathroom for full defecation which occurs on approximately a daily basis. Since discontinuation of vitamin C and iron supplementation this has alleviated some of the patient's pill burden but he continues to be on a multitude of medications and the patient's daughter is contemplating adding on additional supplements which this BROADCAST TRANSMITTER OPERATOR advised to avoid given they are not FDA approved and at this point in time would add to the patient's pill burden. Patient is sitting up in his recliner chair watching TV. He is well groomed and in no acute distress. Past Medical History: Patient has a past medical history of congestive heart failure with reduced EF at 40% 05/07/2020, hypertension, left bundle branch block incomplete, carotid artery stenosis, coronary artery disease, hyperlipidemia, AL with nocturnal oxygen use, restless leg syndrome, memory loss, diabetes mellitus, GI bleed October 1999 with aspirin stopped, CKD stage III, chronic hearing loss, depression followed by behavioral health, anxiety status post CABG. Social History - Living Situation Living arrangement: At home Living Situation: With family (daughter, Zahra) Support System: Patient is . He met his when he was 19 and she in 2012. He and his had 7 children together and his eldest daughter, Zahra is the patient's DPOA and primary caregiver with contact number [phone]. He has been living with Zahra for approximately 5 years. He was born in [place]. Zahra has been working with a friend, Sandrita to assist with household duties and chores within the home environment and when Zahra has to go for her own errands or medical appointments to be with the patient. Medications/Allergies - Medications Home Medications: Ambulatory Orders Medication Instructions Recorded Confirmed Acetaminophen [Acetaminophen Extra 1,000 mg PO TID 08/27/20 08/27/20 Strength] Allergy Relief 180 mg PO DAILY 08/27/20 Cholecalciferol [Vitamin D3] 1 cap PO DAILY 08/27/20 08/27/20 Finasteride [Proscar] 5 mg PO DAILY 08/27/20 08/27/20 Fluticasone [Flonase] 2 spray IH BID 08/27/20 08/27/20 Gabapentin [Neurontin] 300 mg PO TID 08/27/20 08/27/20 Irbesartan [Avapro] 150 mg PO DAILY 08/27/20 08/27/20 LORazepam [Ativan] 0.5 mg PO TID 08/27/20 08/27/20 Lactobacillus Acidophilus 1 cap PO DAILY 08/27/20 08/27/20 [Acidophilus] Lovastatin 40 mg PO QPM 08/27/20 08/27/20 Melatonin 3 mg PO QPM 08/27/20 08/27/20 Metoprolol Succinate [Toprol Xl] 25 mg PO DAILY 08/27/20 08/27/20 Metoprolol Succinate [Toprol Xl] 50 mg PO QPM 08/27/20 08/27/20 Mirtazapine [Remeron] 30 mg PO QPM 08/27/20 08/27/20 Modafinil [Provigil] 200 mg PO DAILY 08/27/20 08/27/20 Multivit-Min/FA/Lycopen/Lutein 1 tab PO DAILY 08/27/20 08/27/20 [Centrum Silver Men Tablet] [place] 3 1,200 units PO BID 08/27/20 Omeprazole 40 mg PO BID 08/27/20 08/27/20 Oxycodone HCl 10 mg PO TID 08/27/20 08/27/20 Tamsulosin [Flomax] 0.8 mg PO DAILY 08/27/20 08/27/20 Torsemide 40 mg PO BID 08/27/20 08/27/20 Venlafaxine ER [Effexor ER] 1 cap PO .AT NOON 08/27/20 08/27/20 Venlafaxine ER [Effexor ER] 2 cap PO DAILY 08/27/20 08/27/20 clonazePAM [Clonazepam] 1 tab PO .EVERY EVENING 08/27/20 08/27/20 polyethylene glycoL 3350 [Miralax] 17 g PO DAILY 08/27/20 08/27/20 rOPINIRole [Requip] 0.25 mg PO QPM 08/27/20 08/27/20 - Allergies Allergies/Adverse Reactions: Allergies Allergy/AdvReac Type Severity Reaction Status Date / Time codeine Allergy Unknown Verified 08/27/20 15:42 pregabalin [From Lyrica] Allergy Unknown Verified 08/27/20 15:42 Review of Systems - Constitutional Constitutional: reports: Fatigue. denies: Fever, Weight loss - Eyes Eyes: reports: Corrective lenses - Ears, Nose & Throat Ears, Nose & Throat: reports: Hearing loss, Dentures. denies: Hearing aids - Cardiovascular Cardiovascular: reports: Edema (fluculates with his sodium intake with foods), Exertional dyspnea. denies: Palpitations - Respiratory Respiratory: denies: Cough - Gastrointestinal Gastrointestinal: reports: Constipation (controlled), Other (Fair appetite). denies: Abdominal pain, Vomiting - Genitourinary Genitourinary: denies: Dysuria - Musculoskeletal Musculoskeletal: reports: Assistive devices (walker). denies: Joint pain - Integumentary Integumentary: reports: Dryness. denies: Rash - Neurological Neurological: reports: General weakness, Memory problems. denies: Headache, Dizziness - Psychiatric Psychiatric: reports: Depression, Anxiety - Endocrine Endocrine: reports: Diabetes type 2 - Hematologic/Lymphatic Hematologic/Lymph: reports: Anemia (GI bleed October 2019 with ASA therapy stopped) - All Other Systems All Other Systems: reports: Reviewed and negative (Patient is a poor historian due to underlying cognitive impairment and review of systems is supplemented by the patient's daughter, Zahra) Physical Exam - Vital Signs Temperature: 36.4 C Pulse Rate: 72 O2 Saturation: 98 (on 2L via NC) Blood Pressure: 148/77 (left arm) - Physical Exam General Appearance: positive: No acute distress, Alert, Other (appears stated age, overweight, sitting up) Eyes Bilateral: positive: Other (+corrective lenses) ENT: positive: No signs of dehydration Neck: positive: Trachea midline. negative: Lymphadenopathy (R), Lymphadenopathy (L) Cardiovascular: positive: Regular rate & rhythm Respiratory: positive: No respiratory distress, Breath sounds nml. negative: Rales Abdomen: positive: Non-tender, Soft, Nml bowel sounds, Obese Skin: positive: Dryness (to UE) Extremities: positive: Pedal edema (trace BLE) Neurologic/Psychiatric: positive: Disoriented to time, Flat affect Palliative Care - POLST Patient has POLST: Yes POLST Status: DNR, Selective Treatment Pain: Comment (Pain controlled and has been followed by [facility] and daughter wishes to transfer to palliative care for mangement due to difficulty leaving the home setting.) Anorexia: Mild (1-3) Performance Status: PPS 50% - Palliative Care Discussion: The patient's daughter despite recognizing that the patient overall has had a slow, progressive decline over the last several months is still desiring to keep appointments for evaluation such as follow-up with dermatology for the patient's skin and casino worker. She does wish for palliative care to assume management of the patient's pain regiment due to difficulty of getting out of the home. We will need to continue to need to tease out goals of care as the desire to avoid specialist and leaving the home versus attending multiple specialists are at a dichotomy. Ultimately, the patient's daughter has a desire for the patient to transition to hospice when medically appropriate. Impression and Recommendations - Palliative Care Impression: This is an 89-year-old gentleman with congestive heart failure with ejection fraction 40%, cognitive impairment likely indicative of dementia possibly vascular nature, with decreased functional status requiring chronic pain management. He was not tolerating his CPAP therapy and has transition to supplemental oxygen which has been a better fit for him to use nocturnally for comfort. Palliative care to continue to build rapport, explore goals of care, set expectations regarding advanced care planning, care coordination and anticipatory guidance with transition to hospice when medically appropriate. Recommendations/Counseling Done: 1. Chronic pain Syndrome with lumbar radiculopathy. Patient presently being followed by [facility] pain clinic but due to difficulty in leaving the home palliative care will assume management and daughter/DPOA aware that one provider and 1 pharmacy are to be utilized moving forward. Daughter requests utilization of [facility] in [place] for prescriptions. Daughter aware to contact palliative care approximately 1 week prior with request of refill of medication. Continue oxycodone 10 mg 3 times daily as ordered for pain (MME 45/day). [facility] reviewed. Continue gabapentin 300 mg 3 times daily for pain. Will notify [facility] pain clinic regarding resumption of pain management. 2. AL. Patient did not tolerate CPAP therapy overnight due to his cognitive impairment. Has tolerated transition to nocturnal oxygen supplementation at 2 L via nasal cannula. Continue to monitor. 3. Cognitive impairment. 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 Will evaluate by more formal means at next evaluation with [facility] for definitive guidance. 4. Polypharmacy. Lengthy discussion with the patient's daughter regarding additional supplementations for the benefit of the patient. At the present time, the patient is on multiple medications that are prescribed and would limit [id number] supplementations reviewing benefits versus burdens and the patient wished to use to have a reduction in his pill burden. Daughter recognizes this desire and will avoid additional supplementation at this time. 5. Advanced care planning. Patient has POLST in place as DN AR with limited interventions. It has become increasingly difficult for the patient's daughter/DPOA to have the patient leave the home and requesting palliative care services. However, the patient's daughter is still having him attend multiple specialists for management and will continue to need to tease out goals and expectations moving forward. Overall the patient's daughter has requested the wish for him to be comfortable and transition to hospice in the home setting when appropriate. Total time spent 52 minutes with greater than 50% of this spent in counseling and coordination of care with patient and daughter/DPOA; examination of patient; supportive listening; review of pain and symptom management and anticipatory guidance. Disclaimer: The chart note was formulated using voice recognition technology and unfortunately sound alike errors may occur.
== END 2020-09-23 10:11 | disposition home or self-care (01) ==
LOC: PC 10:10
PROVIDERS: ATTEND Nurse Practitioner Family
DX: Z51.5 Encounter for palliative care (principal); G89.4 Chronic pain syndrome; G47.33 Obstructive sleep apnea (adult) (pediatric); G31.84 Mild cognitive impairment of uncertain or unknown etiology; M54.16 Radiculopathy, lumbar region; I13.0 Hypertensive heart and chronic kidney disease with heart failure and stage 1 through stage 4 chronic kidney disease, or unspecified chronic kidney disease; N18.30 Chronic kidney disease, stage 3 unspecified; I50.9 Heart failure, unspecified; E78.5 Hyperlipidemia, unspecified; I25.10 Atherosclerotic heart disease of native coronary artery without angina pectoris; I65.29 Occlusion and stenosis of unspecified carotid artery; E11.22 Type 2 diabetes mellitus with diabetic chronic kidney disease; H91.90 Unspecified hearing loss, unspecified ear; F32.9 Major depressive disorder, single episode, unspecified; F41.9 Anxiety disorder, unspecified; Z66 Do not resuscitate; Z95.1 Presence of aortocoronary bypass graft; Z79.899 Other long term (current) drug therapy
CPT/HCPCS: 99349

== ENCOUNTER 2020-10-05 09:45 | Outpatient (CLI) | payer MEDICARE, OTHER ==
--- NOTE | 2020-10-05 12:35 | CONSULTATION NOTE ---
Palliative Care Follow Up - Referral Referring Provider: SOLEDAD Sanchez Time of Visit: [id number] Referral setting: Home Referral Reason: Dryness/Change in voice/Cognitive impairment - Information Sources Records reviewed: Previous records reviewed History/Review of Systems obtained from: Patient, Family (daughter/LIZZIE, Zahra) Exam limitations: Clinical condition (Cognitive impairment, hard of hearing) - History of Present Illness Update Brief HPI Update: This is an 89-year-old gentleman who was seen in acute evaluation today at the request of his daughter, Zahra due to several weeks of "frog in throat, (increased urinary incontinence, and skin changes concerns. The patient is being followed by a [facility] for Skin changes and is presently utilizing fluorouracil as prescribed. He has had scalp changes and is using ketoconazole shampoo and fluocinoside 0.5% to his scalp with improvement of symptoms. He was scheduled to have a follow-up with the Mohs surgeon but due to the daughter's Fatigue regarding her own health this was unable to be followed through with and has been rescheduled. Patient's daughter notes a growth to the patient's rectum. It has been present for many years but recently has had an increase in size. The patient denies pruritus. There has been no rectal bleeding or bleeding on toilet paper after defecation. The patient's bowel movements are regulated and no evidence of constipation. The daughter is expressing concern and wanting reevaluation. In the last several weeks the patient has had a "frog in his throat." He is clearing his throat often. The patient's daughter notes a correlation that between her cutting back his liquids during the day with continuation of his furosemide at the same dose as well as initiation of supplemental oxygen for his AL. She has had to reutilize artificial tears per the patient's report of dryness. The patient denies any visual changes. He has not been blowing his nose excessively. He has been on Carla daily for approximately 1 year. He is also receiving Flonase 2 sprays in each nostril daily. He does have some dyspnea on exertion due to his underlying congestive heart failure. His weight is maintaining stability at approximately 230 pounds with the patient's daughter weighing routinely. The daughter is giving the patient his furosemide first thing in the morning before he gets out of bed. The patient's daughter is noticing increased urinary and continence overnight. They do have pads on the bed for support but finds he is having to change his depends more regularly overnight. Overall of the patient's daughter is feeling overwhelmed with recent changes. The patient himself continues to believe that he is residing in a hotel and responds well to reorientation. The patient is initially seen in his bedroom getting up for the morning. He is able to ambulate with a wide based gait with his Rollator into the living room with no acute distress. Past Medical History: Patient has a past medical history of congestive heart failure with reduced EF at 40% 05/07/2020, hypertension, left bundle branch block incomplete, carotid artery stenosis, coronary artery disease, hyperlipidemia, AL with nocturnal oxygen use, restless leg syndrome, memory loss, diabetes mellitus, GI bleed October 1999 with aspirin stopped, CKD stage III, chronic hearing loss, depression followed by behavioral health, anxiety, status post CABG. Social History - Living Situation Living arrangement: At home Living Situation: With family (daughter, Zahra) Support System: Patient is . He resides with his eldest daughter, Zahra who is his DPOA and primary care trainer with contact number [phone]. He has been living with Zahra for approximately 5 years. He was born in [place]. Zahra has been working with her friend, Sandrita to assist with household duties and chores. Zahra is able to leave the patient for only approximately 1 hour before needing to return. Zahra is finding that it is more difficult to work with her friend Sandrita and is looking at finding additional help. Medications/Allergies - Medications Home Medications: Ambulatory Orders Medication Instructions Recorded Confirmed Acetaminophen [Acetaminophen Extra 1,000 mg PO TID 08/27/20 08/27/20 Strength] Cholecalciferol [Vitamin D3] 1 cap PO DAILY 08/27/20 10/05/20 Finasteride [Proscar] 5 mg PO DAILY 08/27/20 10/05/20 Fluticasone [Flonase] 1 spray IH BID 08/27/20 08/27/20 Gabapentin [Neurontin] 300 mg PO TID 08/27/20 10/05/20 Irbesartan [Avapro] 150 mg PO DAILY 08/27/20 10/05/20 LORazepam [Ativan] 0.5 mg PO TID 08/27/20 10/05/20 Lactobacillus Acidophilus 1 cap PO DAILY 08/27/20 10/05/20 [Acidophilus] Lovastatin 40 mg PO QPM 08/27/20 10/05/20 Melatonin 3 mg PO QPM 08/27/20 10/05/20 Metoprolol Succinate [Toprol Xl] 25 mg PO DAILY 08/27/20 10/05/20 Metoprolol Succinate [Toprol Xl] 50 mg PO QPM 08/27/20 10/05/20 Mirtazapine [Remeron] 30 mg PO QPM 08/27/20 10/05/20 Modafinil [Provigil] 200 mg PO DAILY 08/27/20 10/05/20 Multivit-Min/FA/Lycopen/Lutein 1 tab PO DAILY 08/27/20 10/05/20 [Centrum Silver Men Tablet] Cerulean 3 1,200 units PO BID 08/27/20 10/05/20 Omeprazole 40 mg PO BID 08/27/20 10/05/20 Oxycodone HCl 10 mg PO TID 08/27/20 10/05/20 Tamsulosin [Flomax] 0.8 mg PO DAILY 08/27/20 10/05/20 Torsemide 40 mg PO BID 08/27/20 10/05/20 Venlafaxine ER [Effexor ER] 1 cap PO .AT NOON 08/27/20 10/05/20 Venlafaxine ER [Effexor ER] 2 cap PO DAILY 08/27/20 10/05/20 clonazePAM [Clonazepam] 1 tab PO .EVERY EVENING 08/27/20 10/05/20 polyethylene glycoL 3350 [Miralax] 17 g PO DAILY 08/27/20 10/05/20 rOPINIRole [Requip] 0.25 mg PO QPM 08/27/20 10/05/20 Fluocinonide [Fluocinonide 0.05% 1 applic TP .DAILY TO SCALP MDD 10/05/20 10/05/20 solution] [id number] then off 2 weeks Fluorouracil [Carac] 1 appful TP DAILY 10/05/20 10/05/20 Ketoconazole [Nizoral A-D] 10/05/20 10/05/20 - Allergies Allergies/Adverse Reactions: Allergies Allergy/AdvReac Type Severity Reaction Status Date / Time codeine Allergy Unknown Verified 08/27/20 15:42 pregabalin [From Lyrica] Allergy Unknown Verified 08/27/20 15:42 Review of Systems - Constitutional Constitutional: reports: Fatigue, Weight stable (weight 230lb). denies: Fever, Chills, Weight loss - Eyes Eyes: reports: Irritation (improved with use of artifical tears), Corrective lenses. denies: Vision loss - Ears, Nose & Throat Ears, Nose & Throat: reports: Hearing loss, Dentures, Hoarseness ("frog in throat" for several weeks), Dry mouth. denies: Hearing aids, Nasal discharge, Nosebleeds, Nasal congestion, Postnasal drainage - Cardiovascular Cardiovascular: reports: Edema (fluculates), Exertional dyspnea. denies: Palpitations - Respiratory Respiratory: reports: Other (frequent throat clearing). denies: Cough - Gastrointestinal Gastrointestinal: reports: Constipation (controlled), Other (Fair appetite). denies: Abdominal pain, Rectal bleeding, Bloody stools, Vomiting - Genitourinary Genitourinary: reports: Incontinence (increased). denies: Dysuria, Hematuria - Musculoskeletal Musculoskeletal: reports: Assistive devices (walker). denies: Joint pain - Integumentary Integumentary: reports: Dryness, Other (see HPI) - Neurological Neurological: reports: General weakness, Memory problems. denies: Headache, Dizziness - Psychiatric Psychiatric: reports: Depression, Anxiety - Endocrine Endocrine: reports: Diabetes type 2 - Hematologic/Lymphatic Hematologic/Lymph: reports: Anemia (GI bleed October 2019 with ASA therapy stopped) - All Other Systems All Other Systems: reports: Reviewed and negative (Patient is a poor historian due to underlying cognitive impairment and review of systems is supplemented by the patient's daughter, Zahra) Physical Exam - Vital Signs Temperature: 36.5 C Pulse Rate: 79 O2 Saturation: 97 (on 2L via NC) Blood Pressure: 162/80 (left arm, no AM meds yet) - Physical Exam General Appearance: positive: No acute distress, Alert, Other (appears stated age, overweight) Eyes Bilateral: positive: Normal inspection, PERRL, Conjunctivae nml, Other (+corrective lenses; mild perioribtal edema b/l) ENT: positive: Other (Nasal mucosa slightly drywith edematous turbinates without obstruction; septum midline. Throat: slightly dry. Posterior oropharynx without PND or cobblestoning. Uvula midline.) Neck: positive: No JVD, Trachea midline. negative: Lymphadenopathy (R), Lymp hadenopathy (L) Cardiovascular: positive: Regular rate & rhythm Respiratory: positive: No respiratory distress, Breath sounds nml, Rales (LLL trace crackles), Other (2L via NC in place) Abdomen: positive: Non-tender, Soft, Nml bowel sounds, Obese Skin: positive: Dryness Extremities: positive: Pedal edema (trace BLE and trace b/l hands and fingers) Neurologic/Psychiatric: positive: Disoriented to time, Flat affect, Other (ambulates with wide based gait with rollator) Palliative Care - POLST Patient has POLST: Yes POLST Status: DNR, Selective Treatment - Palliative Care Discussion: His daughter is displaying some signs and symptoms of caregiver fatigue as she was hoping for more support from her friends and recognizing some more subtle changes that the patient is experiencing related to his cognitive impairment. Supportive listening provided and encouraged the patient's daughter to also practice self care within the home. The patient is displaying signs and symptoms of overall generalized dryness to his ear nose and throat most likely indicative of initiation of his supplemental oxygen and and lack of oral hydration during the day on top of his diuretic therapy. Reviewed management of the symptoms including requesting for humidification for the patient supplemental oxygen as a duction and dryness. No evidence of an acute infection reviewed today with the patient and his daughter. The daughter continues to make appointments for the patient but does express the difficulty in taking the patient out of the home to attend these appointments. We will continue to explore goals of care and setting expectations for the patient and daughter moving forward to weigh benefits versus burdens as these appointments are taxing for the patient and exploring if these would want to be continued moving forward after weighing these benefits and burdens based on ultimate goals. 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 Daughter is displaying evidence of caregiver fatigue and provided support if listening today. Palliative care will continue to build rapport, care coordination, advance care planning and anticipatory guidance with transition to hospice when medically appropriate. Recommendations/Counseling Done: 1. Generalized sinus dryness. No evidence of bacterial or viral sinusitus on examination and reviewed with daughter and patient. Patient is afrebrile. Discussed Correlation with recent initiation of oxygen supplementation as contributing factor for the patient's dryness of eyes and throat. No evidence of volume overload. Gently reviewed with the patient's daughter to slowly increase the patient's water intake given his reported complaints and continue to Utilize Torsemide as ordered by cardiology and continue to monitor weight trends. Continue Flonase [id number] but recommend utilizing 1 spray in the morning and 1 spray in the evening to each nostril and demonstrated technique to patient and daughter regarding utilization. Recommend discontinuation of Carla as he has been on this for over a year as a trial and monitor for signs and symptoms as this can also be drying. Will request from [employer] humidification system to the patient's oxygen concentrator to limit nasal dryness and throat dryness. If there is a mild tickle related to dryness may also utilize 1 teaspoon of honey daily to soothe the throat and cough as well as use of cough drops to suck upon. Reviewed to contact palliative care office or PCP if new or worsening symptoms such as dyspnea on exertion, fever, or continuation of symptoms without improvement with understanding verbalized. 2. Anal skin tag. Reassurance provided to patient daughter. Discussed that this can be attributed to a past external hemorrhoid and/or longstanding years of constipation. Patient is not displaying any signs of symptoms or discomfort and therefore would just continue to monitor and ensure that he is not straining during defecation and to avoid constipation. 3.Urinary incontinence. Daughter reports in increased urinary incontinence symptoms. Denies dysuria. Is afebrile. Discussed of avoiding liquids 1 hour prior to bedtime. Reviewed technique of double voiding as well as voiding right before bedtime. Continue to monitor. 4. Caregiver fatigue. Patient's daughter is reporting to feeling overwhelmed with recent changes in managing the patient's multiple medical appointments and conditions. Supportive listening provided. She plans on looking at a another caregiver to provide support when she needs to attend to her own appointments to stay with the patient. Normalized feelings for patient's daughter. Encouraged patient's daughter to continue to practice self-care techniques. We will look at availability of palliative care social media developer to provide additional assistance to the patient's daughter. 5.Cognitive impairment. Patient with noted memory loss likely related to vascu lar dementia given his cardiac history. Will evaluate more formally had next evaluation with [facility] for definitive guidance. Total time spent 50 minutes with greater than 50% of this spent in counseling and coordination of care with patient and daughter/DPOA; symptom management review with medications; pathophysiology of anal skin tag; review of symptom management and anticipatory guidance. Disclaimer: The chart note was formulated using voice recognition technology and unfortunately sound alike errors may occur.
== END 2020-10-05 09:46 | disposition home or self-care (01) ==
LOC: PC 09:45
PROVIDERS: ATTEND Nurse Practitioner Family
DX: Z51.5 Encounter for palliative care (principal); J34.89 Other specified disorders of nose and nasal sinuses; K64.4 Residual hemorrhoidal skin tags; R32 Unspecified urinary incontinence; R41.3 Other amnesia; G47.33 Obstructive sleep apnea (adult) (pediatric); I50.9 Heart failure, unspecified; I13.0 Hypertensive heart and chronic kidney disease with heart failure and stage 1 through stage 4 chronic kidney disease, or unspecified chronic kidney disease; E11.22 Type 2 diabetes mellitus with diabetic chronic kidney disease; N18.30 Chronic kidney disease, stage 3 unspecified; Z99.81 Dependence on supplemental oxygen; Z66 Do not resuscitate
CPT/HCPCS: 99349

== ENCOUNTER 2020-10-12 15:00 | Outpatient (CLI) | payer MEDICARE, OTHER ==
--- NOTE | 2020-10-12 16:41 | CONSULTATION NOTE ---
Palliative Care Follow Up - Referral Referring Provider: SOLEDAD Sanchez Time of Visit: 4093-4461 Referral setting: Home Referral Reason: Loss of Conciousness/Change in voice - Information Sources Records reviewed: Previous records reviewed History/Review of Systems obtained from: Patient, Family (daughter/DPNIRMALA Sweeney and son, Devonte present) Exam limitations: Clinical condition ([place], cognitive impairment) - History of Present Illness Update Brief HPI Update: This is an 89-year-old gentleman who is seen in acute evaluation today at the request of his daughter, Zahra due to loss of consciousness this morning and follow-up regarding vocal changes. On last evaluation the patient's daughter had reported that the patient has had vocal changes with "frog in his throat" with clearing his throat often. Since reintroducing more liquids back into the patient's diet and obtaining humidification for his supplemental oxygen the patient has had a reduction in his focal changes to almost resolving. He is utilizing Flonase nasal spray 1 spray in each nostril twice daily but sometimes, it is missed in the evenings. This morning, the patient got up to use the restroom where he is typically crouched forward on the toilet. He then got up and ambulated to the bedroom and when sitting on the edge of the bed the patient's daughter, Zahra reports that he almost rolled off the bed and was not responding verbally to her. It appeared that he was not breathing and was pale. She became overwhelmed. She reports the episode lasted approximately 30 seconds. After that timeframe the patient ultimately recovered and was able to ambulate into his common area. His blood pressure has been in a normal range for him today. The patient's daughter opted not to contact EMS as she wishes to focus on comfort measures within the home environment. The patient himself today, is seen in his recliner chair in the common area engaged in a conversation with his son, Les who is visiting. He is articulate and engaged. He denies any blurred vision, double vision, headache, dizziness. He has generalized weakness but no focal weakness. The patient's daughter reports that the patient is more disoriented during the day that requires reorientation. They are looking to utilize a calendar to jasbir off the days for the patient to easily tell which day of the week and month it is. His daughter has also noticed with certain foods that the patient is having to clear his throat more regularly but the patient himself denies any evidence of dysphagia. Past Medical History: Patient has a past medical history of congestive heart failure with reduced EF at 40% 05/07/2020, hypertension, left bundle branch block incomplete, carotid artery stenosis, coronary artery disease, hyperlipidemia, AL with nocturnal oxygen use, restless leg syndrome, memory loss, diabetes mellitus, GI bleed October 1999 with aspirin stopped, CKD stage III, chronic hearing loss, depression followed by behavioral health, anxiety, status post CABG. Social History - Living Situation Living arrangement: At home Living Situation: With family (daughter, Zahra) Support System: Patient is . He resides with his eldest daughter, Zahra who is his DPOA and primary care aid with contact number [phone]. He has been living with Zahra for approximately 5 years. He was born in [place]. Medications/Allergies - Medications Home Medications: Ambulatory Orders Medication Instructions Recorded Confirmed Acetaminophen [Acetaminophen Extra 1,000 mg PO TID 08/27/20 08/27/20 Strength] Cholecalciferol [Vitamin D3] 1 cap PO DAILY 08/27/20 10/05/20 Finasteride [Proscar] 5 mg PO DAILY 08/27/20 10/05/20 Fluticasone [Flonase] 1 spray IH BID 08/27/20 08/27/20 Gabapentin [Neurontin] 300 mg PO TID 08/27/20 10/05/20 Irbesartan [Avapro] 150 mg PO DAILY 08/27/20 10/05/20 LORazepam [Ativan] 0.5 mg PO TID 08/27/20 10/05/20 Lactobacillus Acidophilus 1 cap PO DAILY 08/27/20 10/05/20 [Acidophilus] Lovastatin 40 mg PO QPM 08/27/20 10/05/20 Melatonin 3 mg PO QPM 08/27/20 10/05/20 Metoprolol Succinate [Toprol Xl] 25 mg PO DAILY 08/27/20 10/05/20 Metoprolol Succinate [Toprol Xl] 50 mg PO QPM 08/27/20 10/05/20 Mirtazapine [Remeron] 30 mg PO QPM 08/27/20 10/05/20 Modafinil [Provigil] 200 mg PO DAILY 08/27/20 10/05/20 Multivit-Min/FA/Lycopen/Lutein 1 tab PO DAILY 08/27/20 10/05/20 [Centrum Silver Men Tablet] [place] 3 1,200 units PO BID 08/27/20 10/05/20 Omeprazole 40 mg PO BID 08/27/20 10/05/20 Oxycodone HCl 10 mg PO TID 08/27/20 10/05/20 Tamsulosin [Flomax] 0.8 mg PO DAILY 08/27/20 10/05/20 Torsemide 40 mg PO BID 08/27/20 10/05/20 Venlafaxine ER [Effexor ER] 1 cap PO .AT NOON 08/27/20 10/05/20 Venlafaxine ER [Effexor ER] 2 cap PO DAILY 08/27/20 10/05/20 clonazePAM [Clonazepam] 1 tab PO .EVERY EVENING 08/27/20 10/05/20 polyethylene glycoL 3350 [Miralax] 17 g PO DAILY 08/27/20 10/05/20 rOPINIRole [Requip] 0.25 mg PO QPM 08/27/20 10/05/20 Fluocinonide [Fluocinonide 0.05% 1 applic TP .DAILY TO SCALP MDD 10/05/20 10/05/20 solution] [id number] then off 2 weeks Fluorouracil [Carac] 1 appful TP DAILY 10/05/20 10/05/20 Ketoconazole [Nizoral A-D] 10/05/20 10/05/20 - Allergies Allergies/Adverse Reactions: Allergies Allergy/AdvReac Type Severity Reaction Status Date / Time codeine Allergy Unknown Verified 08/27/20 15:42 pregabalin [From Lyrica] Allergy Unknown Verified 08/27/20 15:42 Review of Systems - Constitutional Constitutional: reports: Fatigue. denies: Fever, Chills, Weight loss - Eyes Eyes: reports: Corrective lenses. denies: Blurred vision, Dipolpia - Ears, Nose & Throat Ears, Nose & Throat: reports: Hearing loss, Dentures, Hoarseness (see HPI). denies: Hearing aids, Nasal discharge, Postnasal drainage - Cardiovascular Cardiovascular: reports: Edema (fluculates), Exertional dyspnea. denies: Palpitations, Chest pain - Respiratory Respiratory: denies: Cough - Gastrointestinal Gastrointestinal: reports: Constipation (controlled), Other (Fair appetite). denies: Vomiting - Genitourinary Genitourinary: reports: Incontinence (increased). denies: Dysuria, Hematuria - Musculoskeletal Musculoskeletal: reports: Stiffness (right shoulder), Assistive devices (walker). denies: Joint pain - Integumentary Integumentary: reports: Dryness - Neurological Neurological: reports: General weakness, Memory problems. denies: Headache, Dizziness - Psychiatric Psychiatric: reports: Depression, Anxiety - Endocrine Endocrine: reports: Diabetes type 2 - Hematologic/Lymphatic Hematologic/Lymph: reports: Anemia (GI bleed October 2019 with ASA therapy stopped) - All Other Systems All Other Systems: reports: Reviewed and negative (Patient is a poor historian due to underlying cognitive impairment and review of systems is supplemented by the patient's daughter, Zahra and son, Devonte.) Physical Exam - Vital Signs Temperature: 36.4 C Pulse Rate: 79 O2 Saturation: 98 (on 2L via NC) Blood Pressure: 138/62 (left arm sitting) - Physical Exam General Appearance: positive: No acute distress, Alert, Other (appears stated age, overweight). negative: Anxious Eyes Bilateral: positive: PERRL, Conjunctivae nml, Other (+corrective lenses; mild perioribtal edema b/l) ENT: positive: Other (Nasal mucosa with reduction in edematous turbinates without obstruction; septum midline. Throat: +upper dentures. Posterior oropharynx without PND or cobblestoning. Uvula midline.) Neck: positive: No JVD, Trachea midline Cardiovascular: positive: Regular rate & rhythm, Other (distant heart sounds due to body habitus) Respiratory: positive: No respiratory distress, Breath sounds nml, Rales (LLL trace crackles), Other (2L via NC in place) Abdomen: positive: Non-tender, Soft, Nml bowel sounds, Obese Skin: positive: Dryness Extremities: positive: Pedal edema (trace BLE and no visible edema to hands today) Neurologic/Psychiatric: positive: CN's nml (2-12) (grossly intact without nonfocal abnormality), Disoriented to time (believed year was 1989 and season was Fall), Flat affect, Other Comments/Other: Standing, 140/70, HR 93 with reports of mild dizziness with initial standing that resolved Palliative Care - POLST Patient has POLST: Yes POLST Status: DNR, Selective Treatment Pain: No pain - Palliative Care Discussion: The patient appears to be at his baseline and the earlier episode today was likely due to a vasovagal response resulting in a syncopal episode as the patient was in the restroom prior to the event. No evidence of neurological deficits. Discussed prevention techniques to limit the patient's risk of having an add first event due to position changes resulting in syncope. The patient is quite clear that he wishes to remain at home if an event would occur and to avoid the hospital setting. The patient's daughter also and currently is with honoring the patient's wishes and when the time is appropriate wishes to transfer to hospice services to provide support supportive measures for the patient within the home environment. The patient has an upcoming dermatology appointment due to his history of skin cancer on Sunday. The patient's daughter has questions regarding moving forward with the evaluation. However, she prefers to weigh benefits versus burdens regarding treatment and wishes to speak to the specialist before making a determination of proceeding with any treatment modalities. Impression and Recommendations - Palliative Care Impression: This is an 89-year-old gentleman with congestive heart failure with ejection fraction of 40%, cognitive impairment likely indicative of dementia, with loss of consciousness earlier this morning that has resolved. The patient is fragile with a complex cardiac history and is at risk for subsequent sequelae. Palliative care will continue to provide symptom management, care coordination, advance care planning and anticipatory guidance with transition to hospice when medically appropriate. Recommendations/Counseling Done: 1. Syncope. Patient appears to have had a syncopal episode this morning that may have been vasovagal stimulated as he was in the bathroom prior to the onset of his symptoms. Given the whole history of congestive heart failure and on oral diuretics orthosis static blood pressures were obtained sitting and standing without evidence of orthostasis. The patient did report some minor dizziness that resolved after standing for prolonged period of time. He has physical deconditioning and would recommend doing foot pumps 10 per each leg prior to standing to improve circulation and reduce symptoms. Strongly encouraged lower position changes. Continue oral hydration. Discussed further evaluation and an acute care setting such as the emergency department for further work-up however, both the patient and daughter/DPOA declined wishing to focus on symptom management within the home environment with transition to hospice when medically appropriate. 2. Skin cancer. Patient has a history of skin cancer and is scheduled for follow-up with dermatology on 10/18/2020 with a Mohs specialist for a section on his forehead. Taking the patient out for multiple appointments is fatiguing not only for the patient but for his daughter/caregiver, Shitla as well. Zahra wishes to have potential treatment options relayed from the specialist before making informed decision to proceed with any treatments weighing benefits versus burdens for the patient to optimize his quality of life. 3. Cognitive impairment. 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 Will evaluate more formally at next evaluation with [facility] for definitive direct things. Encouraged the patient's daughter and son to provide gentle reorientiation with time and place. Encourage use of a calendar to jasbir the days for the patient to easily identify the month and day of the week. 4.Advance care planning. The patient has POLST in place as DN AR with selective interventions. Today, the patient and daughter declining further acute evaluation in the emergency department setting. The patient was quite clear in his desire to remain at home if an event or change in condition were to recur. The patient's daughter is continuing to have him attend multiple specialists for management and will continue to tease out goals and expectations moving forward. The patient's daughter wishes to weigh benefits versus burdens regarding treatment options. Overall, the patient's daughter/DPOA and the patient desire to transition to hospice when medically appropriate. Total time spent 50 minutes with greater than 50% of this spent in counseling and coordination of care with patient, daughter/DPOA and son; review of syncope and potential differential diagnoses with management at home;evaluation of patie nt; supportive listening; review of symptom management and anticipatory guidance. Disclaimer: The chart note was formulated using voice recognition technology and unfortunately sound alike errors may occur.
== END 2020-10-12 15:01 | disposition home or self-care (01) ==
LOC: PC 15:00
PROVIDERS: ATTEND Nurse Practitioner Family
DX: Z51.5 Encounter for palliative care (principal); R53.1 Weakness; I13.0 Hypertensive heart and chronic kidney disease with heart failure and stage 1 through stage 4 chronic kidney disease, or unspecified chronic kidney disease; E11.22 Type 2 diabetes mellitus with diabetic chronic kidney disease; N18.30 Chronic kidney disease, stage 3 unspecified; I50.9 Heart failure, unspecified; C44.309 Unspecified malignant neoplasm of skin of other parts of face; R41.3 Other amnesia; Z79.899 Other long term (current) drug therapy; Z66 Do not resuscitate
CPT/HCPCS: 99349

== ENCOUNTER 2020-11-01 | Outpatient (CLI) | payer MEDICARE, OTHER ==
--- NOTE | 2020-11-01 16:15 | CONSULTATION NOTE ---
Palliative Care Follow Up - Referral Referring Provider: SOLEDAD Mg Time of Visit: [id number] Referral setting: Home Referral Reason: Change in condition/Debility/Cognitive impairment - Information Sources Records reviewed: Previous records reviewed History/Review of Systems obtained from: Patient, Family (daughter, Zahra) Exam limitations: Clinical condition (SIOUX, cognitive impairment) - History of Present Illness Update Brief HPI Update: This is an 89-year-old gentleman who is seen and evaluated today for acute evaluation at the request of his daughter, Zahra due to increased functional decline and cognitive impairments. Last week, the patient attended 2 outpatient appointments with his family caseworker and his victim advocate. He had a Mohs procedure pending but due to recent increased debility is unlikely to proceed. The end of last week after the patient had the above stated outpatient appointm ents, the patient's daughter perceived that his knees were giving out on him and he was dragging his feet with ambulation. He has gotten to the point that he is requiring a two-person transfer. He is not able to turn easily within his bed. He is now being wheeled on his Rollator with a gait belt from point A to point B. He has not had any recent falls. He is sleeping more during the day for l kg hours. There are times when the patient's daughter will check in on the patient while he is in bed in the late morning and he appears to have limited air movement and is pale in coloring leading to the daughter to be concerned the patient has but ultimately he is arousable. In the last several days his oral intake has significantly decreased and he is now requiring assistance with feeding when previously he was able to independently feed himself. He is also pocketing food and forgetting how to swallow. He is requiring increased cueing by his daughter and family members. He has not had a bowel movement in 3 to 4 days. He is having positive flatus. The patient's daughter gave MiraLAX approximately 3 days ago but has not continued as she was fearful about how things would unfold in regards to the patient's clinical status that she did not want to take him to the hospital. She has been in contact with [facility] who had previously evaluated the patient for hospice admission in the fall 2019 when he was declined at that time for admission. Is on 2 L via nasal cannula. The "frog in his throat" has returned. When he is attempting to ambulate he is visibly winded and is unable to take many steps and not Be fatigued. Yesterday, the patient's daughter has started giving the patient Robitussin [id number] for cough as well as cough drops with no per ceivable difference in this "frog in his throat." This is likely due to some potential difficulty with upper airway clearance. He has remained afebrile. He has also had a decrease in his liquid intake leading to a more concentrated yellow color to his urine. His daughter is attempting to encourage him to drink his coffee and water. However, he is also having difficulty holding his cups due to lack of coordination which is also a change in condition. The patient is seen out of bed in his recliner chair in the common area with supplemental oxygen in place. He is bright and alert and engaged with his son, Denzel and [id number], Marii. No evidence of acute distress. Past Medical History: Patient has a past medical history of congestive heart failure with reduced EF at 40% 05/07/2020, hypertension, left bundle branch block incomplete, carotid artery stenosis, coronary artery disease, hyperlipidemia, AL with nocturnal oxygen use, restless leg syndrome, memory loss, diabetes mellitus, GI bleed October 1999 with aspirin stopped, CKD stage III, chronic hearing loss, depression followed by behavioral health, anxiety, status post CABG, squamous cell carcimo na, basal cell carcinoma. Social History - Living Situation Living arrangement: At home Living Situation: With family (daughter, Zahra) Support System: Patient is . He resides with his eldest daughter, Zahra who is his DPOA and primary medicare contact specialist with contact number [phone]. He has been living with Zahra for approximately 5 years. He was born in [place]. His son Les came to the home when he was demonstrating increased weakness to provide assistance to the patient with transfers. Over the weekend he also had visitation from his estranged daughter, Alexandra and his niece and her daughter. He has seemed to perk up with the increased visitations. Medications/Allergies - Medications Home Medications: Ambulatory Orders Medication Instructions Recorded Confirmed Acetaminophen [Acetaminophen Extra 1,000 mg PO TID 08/27/20 08/27/20 Strength] Finasteride [Proscar] 5 mg PO DAILY 08/27/20 10/05/20 Fluticasone [Flonase] 1 spray IH BID 08/27/20 08/27/20 Gabapentin [Neurontin] 300 mg PO TID 08/27/20 10/05/20 Irbesartan [Avapro] 150 mg PO DAILY 08/27/20 10/05/20 LORazepam [Ativan] 0.5 mg PO TID 08/27/20 10/05/20 Metoprolol Succinate [Toprol Xl] 25 mg PO DAILY 08/27/20 10/05/20 Metoprolol Succinate [Toprol Xl] 50 mg PO QPM 08/27/20 10/05/20 Mirtazapine [Remeron] 30 mg PO QPM 08/27/20 10/05/20 Modafinil [Provigil] 200 mg PO DAILY 08/27/20 10/05/20 Omeprazole 40 mg PO BID 08/27/20 10/05/20 Oxycodone HCl 10 mg PO TID 08/27/20 10/05/20 Tamsulosin [Flomax] 0.8 mg PO DAILY 08/27/20 10/05/20 Torsemide 40 mg PO BID 08/27/20 10/05/20 Venlafaxine ER [Effexor ER] 1 cap PO .AT NOON 08/27/20 10/05/20 Venlafaxine ER [Effexor ER] 2 cap PO DAILY 08/27/20 10/05/20 clonazePAM [Clonazepam] 1 tab PO .EVERY EVENING 08/27/20 10/05/20 polyethylene glycoL 3350 [Miralax] 17 g PO DAILY 08/27/20 10/05/20 rOPINIRole [Requip] 0.25 mg PO QPM 08/27/20 10/05/20 Fluocinonide [Fluocinonide 0.05% 1 applic TP .DAILY TO SCALP MDD 10/05/20 10/05/20 solution] [id number] then off 2 weeks Fluorouracil [Carac] 1 appful TP DAILY 10/05/20 10/05/20 Ketoconazole [Nizoral A-D] 10/05/20 10/05/20 - Allergies Allergies/Adverse Reactions: Allergies Allergy/AdvReac Type Severity Reaction Status Date / Time codeine Allergy Unknown Verified 11/01/20 16:55 pregabalin [From Lyrica] Allergy Unknown Verified 11/01/20 16:55 Review of Systems - Constitutional Constitutional: reports: Fatigue (sleeping longer and into the day), Poor appetite. denies: Fever, Chills, Weight loss - Eyes Eyes: reports: Corrective lenses. denies: Blurred vision - Ears, Nose & Throat Ears, Nose & Throat: reports: Hearing loss, Dentures, Hoarseness (see HPI). denies: Hearing aids, Postnasal drainage, Dry mouth - Cardiovascular Cardiovascular: reports: Edema, Exertional dyspnea. denies: Palpitations, Chest pain - Respiratory Respiratory: reports: SOB with exertion, Other (on supplemental oxygen). denies: Cough, Wheezing - Gastrointestinal Gastrointestinal: reports: Constipation (see HPI), Poor appetite (over last several days, see HPI). denies: Abdominal pain, Vomiting - Genitourinary Genitourinary: reports: Incontinence. denies: Dysuria, Hematuria - Musculoskeletal Musculoskeletal: reports: Stiffness, Assistive devices, Transfer issues (requiring two person transfer). denies: Joint pain - Integumentary Integumentary: reports: Dryness - Neurological Neurological: reports: General weakness, Memory problems, Other (increased incoordination with tasks such as feeding himself). denies: Headache - Psychiatric Psychiatric: reports: Depression, Anxiety - Endocrine Endocrine: reports: Diabetes type 2 - Hematologic/Lymphatic Hematologic/Lymph: reports: Anemia (GI bleed October 2019 with ASA therapy stopped) - All Other Systems All Other Systems: reports: Reviewed and negative (Patient is a poor historian due to underlying cognitive impairment and review of systems is supplemented by the patient's daughter, Zahra.) Physical Exam - Vital Signs Temperature: 36.2 C Pulse Rate: 70 O2 Saturation: 97 (on 2L via NC) Blood Pressure: 115/58 (left arm) - Physical Exam General Appearance: positive: No acute distress, Alert, Other (appears stated age, overweight). negative: Anxious Eyes Bilateral: positive: PERRL, Other (+corrective lenses; mild perioribtal edema b/l) ENT: positive: Other (Throat: +upper dentures. Posterior oropharynx without PND or cobblestoning. Uvula midline.) Neck: positive: No JVD, Trachea midline Cardiovascular: positive: Regular rate & rhythm, Other (distant heart sounds due to body habitus) Respiratory: positive: No respiratory distress (even respirations and able to speak in full sentences), Breath sounds nml, Rhonchi (LLL that clears with cough), Other (2L via NC in place) Abdomen: positive: Non-tender, Soft, Nml bowel sounds, Obese. negative: Guarding Skin: positive: Dryness Extremities: positive: Pedal edema (trace BLE) Neurologic/Psychiatric: positive: Disoriented to time, Weakness, Flat affect Palliative Care - POLST Patient has POLST: Yes POLST Status: DNR, Selective Treatment Pain: No pain Performance Status: Previously able to ambulate with a walker. Now requiring 2 person transfer and unable to ambulate with out his knees giving out or extreme dyspnea on exertion. No longer to able to feed himself. Urinary incontinence present. PPS 50% - Palliative Care Discussion: The patient continues to demonstrate signs and symptoms of functional decline. He has had a sharp functional decline in recent weeks and his ability to rebound close to his previous baseline has not been present. He is requiring increased caregiving assistance from his children and most specifically his daughter, Zahra who is the primary caregiver. The patient is demonstrating in creased evidence of progression due to his con gestive heart failure and is unable to carry out physical activity with out dyspnea and now requires supplemental oxygen at all times. He is also medically optimized with oral medications for treatment of his congestive heart failure. The patient's daughter wishes to focus on comfort measures within the home environment and to avoid hospitalization. The daughter wishes to transfer the patient's care to [facility] the [facility] as the patient was previously evaluated by this hospice service. It has been increasingly difficult for the patient's daughter with caregiving burden and recognizing that the patient is declining and providing adequate support. She wishes to provide all the right care for the patient and looks for guidance and assistance. The patient recently perked up due to increased visitations from his family but would expect that he can would continue to have a decline after visitations have commenced. Impression and Recommendations - Palliative Care Impression: This is an 89-year-old gentleman with congestive heart failure with ejection fraction 40% displaying signs and symptoms of increased symptoms related to his CHF despite medical management, cognitive impairment likely indicative of dementia, and progressive functional decline. The patient is fragile with a complex cardiac history and is at risk for subsequent sequelae. The patient's family wishes to focus on comfort measures within the home environment and wishes to transfer services to [facility]. Recommendations/Counseling Done: 1. Congestive heart failure with underlying hypoxemia. EF 40% in 2020. He has BLE edema that appears to be at baseline. Blood pressure has some flucuations based on the patient's oral intake, at the present time stable. Continue toresemide 40mg BID as ordered by cardiology. Continue metoprolol and irbesartan as prescribed. Given the patient is having increased symptoms of GARCÍA, requiring supplemental oxygen and showing increased functional decline he is to be evaluated by the hospital at [facility] for focus on comfort within his home and avoidance of hospitalization. 2. Constipation. Sedentary lifestyle, decreased oral intake and opioid therapy contributing. Recommended restarting daily miralax 17g dissolved in 4-8 ounces of liquid. Continue stool softener. Reviewed titration of miralax and senna for achievement of bowel elimination with the patient's daughter/DPOA. 3. Lumbar radiculopathy with chronic pain. Continue oxycodone 10mg TID for pain. Discussed with the patient's daughter that this is for comfort and can also assist with the patient's breathing due to vasodilation. Reviewed the importance to not Abruptly stopped oxycodone due to potential withdrawal symptoms. Daughter verbalized understanding. 4. Cognitive impairment. The patient clearly has memory loss likely with underlying vascular dementia given his cardiac history. Have been unable to perform a more formal assessment with [facility] at the present time. Now that the patient is requiring assistance with feeding and needs cueing for mealtimes may have some underlying oropharyngeal dysphagia. Reviewed with the patient's daughter the possibility of increased risk of aspiration and wishes to continue to offer foods that the patient finds pleasurable given his reduced oral intake. The daughter is aware of the increased risk of aspiration pneumonia. Reviewed strategies such as cutting up foods, queing for swallowing during meal times, making foods moist, utlizing chin-tuck technique for swallowing, etc. Supportive care. Aspiration precautions. Given the patient's advanced age a continued gradual decline is expected. 5. Hyperlipidemia. Discussed with the patient's daughter/DPOA at length given the patient's advanced age and underlying dementia would recommend discontinuation of lovastatin given length of time to see benefit of statin therapy and not contributing to the patient's comfort at this time and risk of medication side effects. After weighing benefits vs burdens and the time to see benefit the patient's daughter is in agreement to discontinue statin therapy. 6. Advanced care planning. Patient has POLST in place as DN AR with limited interventions. Reviewed the patient's medications and pill burden and wish to focus on medications that led to the patient's comfort. Will discontinue omega 3, centrum silver, melatonin, vitamin D3 and probiotic. The patient has been demonstrating increased caregiving needs and the family wishes to focus on comfort in the home and is ready to have hospice support. The patient's daughter/DPOA has been in contact with [facility] due to previous evaluation and has requested admission. Contacted [facility] and provided update regarding needed equipments such as transfer of supplemental oxygen and hospital bed. Unclear when admission is to be at the present time. Patient's daughter/DPOA is aware to contact Palliative Care in the interim if concerns or questions prior to hospice admission. Message left for patient's PCP office regarding request to hopsice at [facility]. Supportive listening provided to the daughter. Total time spent 85 minutes with greater than 50% of this spent in counseling and coordination of care with patient, daughter/DPOA, son; hospice supportive and philosophy; review of progression of underlying chronic illnesses; review of medication and discontinuation not providing symptom management; symptom management and anticipatory guidance. Disclaimer: The chart note was formulated using voice recognition technology and unfortunately sound alike errors may occur.
--- OUTSIDE RECORDS SUMMARY | 2020-11-09 21:45 | EXTERNAL MEDICAL SUMMARY RPT | Continuity of Care Document ---
: Demographics Phone Unavailable Preferred Language Unknown Marital Status Unknown Religion Affiliation Unknown Race Unknown Ethnic Group Unknown Author Organization [facility] Address [address] [place] [address] Phone Care Team Providers Name Role Phone Consuelo Santoyo Unavailable Unavailable Medications date description facility [id number] Lorazepam 0.5 MG Oral Tablet [facility] [id number] Furosemide 40 MG Oral Tablet Yaritza holcomb Social History date description facility [id number]
== END 2020-11-01 13:48 | disposition home or self-care (01) ==
CPT/HCPCS: 99350